=== PATIENT | female | born 1940 | race African-American/Black ===

== ENCOUNTER 2017-06-20 16:37 | Inpatient (IN) | payer OTHER ==
[2017-06-20] MEDS ORDERED: SODIUM CHLORIDE 500 ML IV STA (17:34)
[2017-06-20] MEDS ORDERED: dilTIAZem HCL 50 MG/10 ML - 10 ML VIAL IVPUSH ONE (17:35)
[2017-06-20] MEDS ORDERED: DILTIAZEM INJECTION 125 MG in DEXTROSE 5%-WATER - 100 ML IVPB SCH (17:45)
[2017-06-20] MEDS ORDERED: dilTIAZem HCL 125 MG/25 ML - 25 ML VIAL ONE (17:52)
[2017-06-20 18:27] LABS: BASOPHIL 0.3 % (0-2.0); MCH 29.2 pg (25.7-33.7); MCHC 32.8 g/dl (32.0-36.0); MEAN CELL VOLUME 88.8 fl (80-96); MEAN PLT VOLUME 9.9 fl (7.5-11.1); NEUTROPHILS 70.4 % (42.8-82.8); PLATELET COUNT 172 K/MM3 (134-434); RDW 15.3 % (11.6-15.6); WHITE BLOOD COUNT 6.7 K/mm3 (4.0-10.0)
[2017-06-20 19:34] LABS: INR 3.14 (0.82-1.09); PROTHROMBIN TIME (PATIENT) 35.5 SEC (9.98-11.88)
[2017-06-20 19:50] LABS: ALBUMIN 3.3 g/dl (3.4-5.0); ANION GAP 6 (8-16); BILIRUBIN,TOTAL 0.5 mg/dL (0.2-1.0); CALCIUM 8.3 mg/dL (8.5-10.1); CO2 27 mmol/L (21-32); CREATININE 0.8 mg/dL (0.55-1.02); GLUCOSE,RANDOM 108 mg/dL (74-106); SGOT/AST 14 U/L (15-37); SGPT/ALT 18 U/L (12-78); TOT PROT 7.1 g/dl (6.4-8.2)
[2017-06-20 19:52] LABS: ALK PHOS 101 U/L (45-117); CPK 68 IU/L (26-192); TROPONIN I < 0.02 ng/ml (0.00-0.05)
[2017-06-20 20:58] LABS: URINE APPEARANCE CLEAR; URINE BILIRUBIN NEGATIVE (NEGATIVE); URINE BLOOD 2+ (NEGATIVE); URINE COLOR STRAW; URINE GLUCOSE (UA) NEGATIVE (NEGATIVE); URINE KETONE NEGATIVE (NEGATIVE); URINE NITRITE NEGATIVE (NEGATIVE); URINE PROTEIN NEGATIVE (NEGATIVE); URINE UROBILINOGEN NEGATIVE mg/dL (0.2-1.0)
--- NOTE | 2017-06-20 20:58 | PDOC ---
History of Present Illness <Anders Sanford - Last Filed: 06/20/17 20:59> - General History Source: Patient Exam Limitations: No Limitations - History of Present Illness Initial Comments: 06/20/17 21:21 The patient is a 77 year old female, with a significant past medical history of AFIB, DM, HTN and HLD, who presents to the emergency department with palpitations. She reports that it gets worse when she lay down. She denies partaking in any exertional activities today or recently. She reports that the last time she took Coumadin was yesterday. The patient denies chest pain, shortness of breath, headache and dizziness. Denies fever, chills, nausea, vomit, diarrhea and constipation. Denies dysuria, frequency, urgency and hematuria. Allergies: None Past surgical history: Ablation Social history: No alcohol, tobacco or drug use reported <Chan Velarde - Last Filed: 06/20/17 21:23> - General Chief Complaint: Palpitations Stated Complaint: PALPITATIONS Time Seen by Provider: 06/20/17 17:35 Past History - Past Medical History Anemia: No Asthma: No Cancer: No Cardiac Disorders: Yes (AFIB) CVA: No COPD: No CHF: No Dementia: No Diabetes: No GI Disorders: No Disorders: No HTN: Yes Hypercholesterolemia: Yes Liver Disease: No Seizures: No Thyroid Disease: No - Surgical History Abdominal Surgery: No Appendectomy: No Cardiac Surgery: Yes (ABLATION) Cholecystectomy: No Lung Surgery: No Neurologic Surgery: No Orthopedic Surgery: No - Immunization History Td Vaccination: (unknown) Immunization Up to Date: Yes - Suicide/Smoking/Psychosocial Hx Smoking Status: Yes Smoking History: Never smoked Years of Tobacco Use: 0 Have you smoked in the past 12 months: No Number of Cigarettes Smoked Daily: 0 If you are a former smoker, when did you quit?: Over 25 years ago Cigars Per Day: 0 Information on smoking cessation initiated: No Hx Alcohol Use: No Drug/Substance Use Hx: No Substance Use Type: None Hx Substance Use Treatment: No <Anders Sanford - Last Filed: 06/20/17 20:59> <Chan Velarde - Last Filed: 06/20/17 21:23> - Past Medical History Allergies/Adverse Reactions: Allergies Allergy/AdvReac Type Severity Reaction Status Date / Time No Known Allergies Allergy Verified 06/09/16 19:08 Home Medications: Ambulatory Orders Dofetilide [Tikosyn (RESTRICTED TO CARDIOLOGY) -] 250 mcg PO BID 10/30/12 Diltiazem Cd [Cardizem Cd -] 240 mg PO DAILY 08/12/14 Calcium Carbonate/Vitamin D3 [Oyster Shell 500-Vit D3 200 Tb] 1 each PO BID 04/17 Simvastatin [Zocor -] 40 mg PO HS 06/09/16 Warfarin Sodium [Coumadin] 5 mg PO DAILY 06/09/16 Metoprolol Tartrate [Lopressor -] 50 mg PO DAILY tablet 06/12/16 Valsartan [Diovan] 80 mg PO DAILY tablet 06/12/16 Review of Systems - Review of Systems Able to Perform ROS?: Yes Comments:: 06/20/17 21:23 GENERAL/CONSTITUTIONAL: No fever or chills. No weakness. HEAD, EYES, EARS, NOSE AND THROAT: No change in vision. No ear pain or discharge. No sore throat.- CARDIOVASCULAR: (+) Palpitations. No chest pain or shortness of breath RESPIRATORY: No cough, wheezing, or hemoptysis. GASTROINTESTINAL: No nausea, vomiting, diarrhea or constipation. GENITOURINARY: No dysuria, frequency, or change in urination. MUSCULOSKELETAL: No joint or muscle swelling or pain. No neck or back pain. SKIN: No rash NEUROLOGIC: No headache, vertigo, loss of consciousness, or change in strength/ sensation. ENDOCRINE: No increased thirst. No abnormal weight change HEMATOLOGIC/LYMPHATIC: No anemia, easy bleeding, or history of blood clots. ALLERGIC/IMMUNOLOGIC: No hives or skin allergy. <Chan Velarde - Last Filed: 06/20/17 21:23> *Physical Exam - Vital Signs Last Vital Signs Temp Pulse Resp BP Pulse Ox 98.1 F 116 H 18 131/78 97 06/20/17 18:29 06/20/17 18:29 06/20/17 18:29 06/20/17 18:29 06/20/17 18:29 <Anders Sanford - Last Filed: 06/20/17 20:59> - Vital Signs Last Vital Signs Temp Pulse Resp BP Pulse Ox 98.1 F 116 H 18 131/78 97 06/20/17 18:29 06/20/17 18:29 06/20/17 18:29 06/20/17 18:29 06/20/17 18:29 - Physical Exam Comments: 06/20/17 21:23 GENERAL: Awake, alert, and fully oriented, in no acute distress HEAD: No signs of trauma, normocephalic, atraumatic EYES: PERRLA, EOMI, sclera anicteric, conjunctiva clear ENT: Auricles normal inspection, hearing grossly normal, nares patent, oropharynx clear without exudates. Moist mucosa NECK: Normal ROM, supple, no lymphadenopathy, JVD, or masses LUNGS: No distress, speaks full sentences, clear to auscultation bilaterally HEART: Regular rate and rhythm, normal S1 and S2, no murmurs, rubs or gallops, peripheral pulses normal and equal bilaterally. ABDOMEN: Soft, nontender, normoactive bowel sounds. No guarding, no rebound. No masses EXTREMITIES : Normal inspection, Normal range of motion, no edema. No clubbing or cyanosis. NEUROLOGICAL: Cranial nerves II through XII grossly intact. Normal speech, normal gait, no focal sensorimotor deficits SKIN: Warm, Dry, normal turgor, no rashes or lesions noted. <Chan Velarde - Last Filed: 06/20/17 21:23> Heart Score/ECG Review - History History: Moderately suspicious - Electrocardiogram EKG: Non specific repolarization disturbance - Age Age: >/= 65 - Risk Factors Risk Factors Heart Score: Yes Hx Hypercholesterolemia, Yes Hx Hypertension, Yes Hx Diabetes, Yes Positive family hx of cardiac disease Based on the list above the patient has:: >/=3 risk factors or Hx atherosclerotic disease - Troponin Troponin: </= normal limit - Score Heart Score - Total: 6 <Anders Sanford - Last Filed: 06/20/17 20:59> ED Treatment Course - LABORATORY CBC & Chemistry Diagram: 06/20/17 17:43 06/20/17 19:00 - ADDITIONAL ORDERS Additional order review: Laboratory Results 06/20/17 06/20/17 06/20/17 19:00 19:00 19:00 PT with INR 35.50 H INR 3.14 H D Sodium 140 Potassium 3.5 Chloride 107 Carbon Dioxide 27 Anion Gap 6 L BUN 14 Creatinine 0.8 Creat Clearance w eGFR > 60 Random Glucose 108 H Calcium 8.3 L Magnesium Total Bilirubin 0.5 AST 14 L ALT 18 Alkaline Phosphatase 101 D Creatine Kinase 68 Troponin I < 0.02 B-Natriuretic Peptide 552.62 H Total Protein 7.1 Albumin 3.3 L Anti-A Titer Blood Type Antibody Screen Spec Expiration Date 06/20/17 06/20/17 06/20/17 17:43 17:43 17:43 PT with INR Cancelled INR Cancelled Sodium Cancelled Potassium Cancelled Chloride Cancelled Carbon Dioxide Cancelled Anion Gap Cancelled BUN Cancelled Creatinine Cancelled Creat Clearance w eGFR Cancelled Random Glucose Cancelled Calcium Cancelled Magnesium Cancelled Total Bilirubin Cancelled AST Cancelled ALT Cancelled Alkaline Phosphatase Cancelled Creatine Kinase Cancelled Troponin I Cancelled B-Natriuretic Peptide Cancelled Total Protein Cancelled Albumin Cancelled Anti-A Titer Cancelled Blood Type Cancelled Antibody Screen Cancelled Spec Expiration Date Cancelled 06/20/17 17:43 RBC 4.45 MCV 88.8 MCHC 32.8 RDW 15.3 MPV 9.9 Neutrophils % 70.4 D Lymphocytes % 21.4 D Monocytes % 7.9 Eosinophils % 0.0 Basophils % 0.3 - RADIOLOGY Radiology Studies Ordered: Category Date Time Status CHEST X-RAY PORTABLE* [RAD] Stat Radiology 06/20/17 17:34 Completed - Medications Given in the ED: ED Medications Discontinued Medications Generic Name Dose Route Start Last Admin Trade Name Freq PRN Reason Stop Dose Admin Diltiazem HCl 10 mg 06/20/17 17:35 06/20/17 17:53 Cardizem Injection - IVPUSH 06/20/17 17:36 10 mg ONCE ONE Administration Sodium Chloride 500 mls @ 500 mls/hr 06/20/17 17:34 06/20/17 17:48 Normal Saline - IV 06/20/17 18:33 500 mls/hr ASDIR STA Administration <Anders Sanford - Last Filed: 06/20/17 20:59> - LABORATORY CBC & Chemistry Diagram: 06/20/17 17:43 06/20/17 19:00 - ADDITIONAL ORDERS Additional order review: Laboratory Results 06/20/17 06/20/17 06/20/17 19:00 19:00 19:00 PT with INR 35.50 H INR 3.14 H D Sodium 140 Potassium 3.5 Chloride 107 Carbon Dioxide 27 Anion Gap 6 L BUN 14 Creatinine 0.8 Creat Clearance w eGFR > 60 Random Glucose 108 H Calcium 8.3 L Magnesium Total Bilirubin 0.5 AST 14 L ALT 18 Alkaline Phosphatase 101 D Creatine Kinase 68 Troponin I < 0.02 B-Natriuretic Peptide 552.62 H Total Protein 7.1 Albumin 3.3 L Urine Color Urine Appearance Urine pH Urine Protein Urine Glucose (UA) Urine Ketones Urine Blood Urine Nitrite Urine Bilirubin Urine Urobilinogen Urine RBC Urine WBC Ur Epithelial Cells Anti-A Titer Blood Type Antibody Screen Spec Expiration Date 06/20/17 06/20/17 06/20/17 17:43 17:43 17:43 PT with INR INR Sodium Cancelled Potassium Cancelled Chloride Cancelled Carbon Dioxide Cancelled Anion Gap Cancelled BUN Cancelled Creatinine Cancelled Creat Clearance w eGFR Cancelled Random Glucose Cancelled Calcium Cancelled Magnesium Cancelled Total Bilirubin Cancelled AST Cancelled ALT Cancelled Alkaline Phosphatase Cancelled Creatine Kinase Cancelled Troponin I Cancelled B-Natriuretic Peptide Cancelled Total Protein Cancelled Albumin Cancelled Urine Color Straw Urine Appearance Clear Urine pH 6.0 Urine Protein Negative Urine Glucose (UA) Negative Urine Ketones Negative Urine Blood 2+ H Urine Nitrite Negative Urine Bilirubin Negative Urine Urobilinogen Negative Urine RBC 8 Urine WBC 1 Ur Epithelial Cells Rare Anti-A Titer Cancelled Blood Type Cancelled Antibody Screen Cancelled Spec Expiration Date Cancelled 06/20/17 17:43 PT with INR Cancelled INR Cancelled Sodium Potassium Chloride Carbon Dioxide Anion Gap BUN Creatinine Creat Clearance w eGFR Random Glucose Calcium Magnesium Total Bilirubin AST ALT Alkaline Phosphatase Creatine Kinase Troponin I B-Natriuretic Peptide Total Protein Albumin Urine Color Urine Appearance Urine pH Urine Protein Urine Glucose (UA) Urine Ketones Urine Blood Urine Nitrite Urine Bilirubin Urine Urobilinogen Urine RBC Urine WBC Ur Epithelial Cells Anti-A Titer Blood Type Antibody Screen Spec Expiration Date 06/20/17 17:43 RBC 4.45 MCV 88.8 MCHC 32.8 RDW 15.3 MPV 9.9 Neutrophils % 70.4 D Lymphocytes % 21.4 D Monocytes % 7.9 Eosinophils % 0.0 Basophils % 0.3 - Medications Given in the ED: ED Medications Discontinued Medications Generic Name Dose Route Start Last Admin Trade Name Freq PRN Reason Stop Dose Admin Diltiazem HCl 10 mg 06/20/17 17:35 06/20/17 17:53 Cardizem Injection - IVPUSH 06/20/17 17:36 10 mg ONCE ONE Administration Sodium Chloride 500 mls @ 500 mls/hr 06/20/17 17:34 06/20/17 17:48 Normal Saline - IV 06/20/17 18:33 500 mls/hr ASDIR STA Administration <Chan Velarde - Last Filed: 06/20/17 21:23> *DC/Admit/Observation/Transfer - Discharge Dispostion Admit: Yes <Anders Sanford - Last Filed: 06/20/17 20:59> - Attestations Scribe Attestion: 06/20/17 21:23 Documentation prepared by Chan Velarde, acting as medical supply technician for Anders Sanford MD <Chan Velarde - Last Filed: 06/20/17 21:23> Diagnosis at time of Disposition: Atrial fibrillation with RVR Atrial fibrillation Qualifiers: Atrial fibrillation type: paroxysmal Qualified Code(s): I48.0 - Paroxysmal atrial fibrillation - Discharge Dispostion Condition at time of disposition: Improved - Referrals Referrals: Nicolas Orosco MD [Primary Care Provider] -
[2017-06-20 21:08] LABS: URINE RBC 8 /hpf (0-3); URINE WBC 1 /hpf (3-5)
[2017-06-20 23:03] LABS: URINE LEUK ESTERASE Negative (NEGATIVE)
[2017-06-20 23:52] VITALS: BMI 31.9
[2017-06-21] MEDS ORDERED: ACETAMINOPHEN 325 MG TABLET (FP) PO PRN (00:30)
[2017-06-21 01:39] LABS: URINE APPEARANCE CLEAR; URINE BILIRUBIN NEGATIVE (NEGATIVE); URINE BLOOD 2+ (NEGATIVE); URINE COLOR STRAW; URINE GLUCOSE (UA) NEGATIVE (NEGATIVE); URINE KETONE NEGATIVE (NEGATIVE); URINE NITRITE NEGATIVE (NEGATIVE); URINE PROTEIN NEGATIVE (NEGATIVE); URINE UROBILINOGEN NEGATIVE mg/dL (0.2-1.0)
[2017-06-21 02:13] LABS: URINE BACTERIA RARE /hpf (NONE SEEN); URINE MUCUS RARE; URINE RBC 5 /hpf (0-3)
[2017-06-21 07:15] LABS: BASOPHIL 1.7 % (0-2.0); MCHC 33.1 g/dl (32.0-36.0); MEAN CELL VOLUME 87.6 fl (80-96); MEAN PLT VOLUME 9.5 fl (7.5-11.1); NEUTROPHILS 57.9 % (42.8-82.8); PLATELET COUNT 165 K/MM3 (134-434); RDW 15.1 % (11.6-15.6); WHITE BLOOD COUNT 5.8 K/mm3 (4.0-10.0)
[2017-06-21 07:42] LABS: ANION GAP 8 (8-16); CALCIUM 8.2 mg/dL (8.5-10.1); CO2 26 mmol/L (21-32); GLUCOSE,RANDOM 114 mg/dL (74-106); MAGNESIUM 2.1 mg/dL (1.8-2.4)
[2017-06-21 07:52] LABS: ALK PHOS 91 U/L (45-117); BILIRUBIN,TOTAL 0.5 mg/dL (0.2-1.0); CPK 67 IU/L (26-192); CREATININE 0.8 mg/dL (0.55-1.02); FREE T4 1.33 ng/dl (0.76-1.46); SGOT/AST 13 U/L (15-37); SGPT/ALT 16 U/L (12-78); THYROID STIMULATING HORMONE 1.27 uIU/ml (0.358-3.74); TOT PROT 6.5 g/dl (6.4-8.2); TROPONIN I 0.02 ng/ml (0.00-0.05)
--- NOTE | 2017-06-21 08:51 | CON.CARD ---
Consult Consult Specialty:: cardiology Reason for Consultation:: AF; prolonged pause - History of Present Illness History of Present Illness: The patient is a 77 year old black female, with a significant past medical history of AFIB, DM, HTN and HLD, who presents to the emergency department with palpitations. She reports that it gets worse when she lays down. She denies partaking in any exertional activities today or recently. She reports that the last time she took Coumadin was yesterday. The patient denies chest pain, shortness of breath, headache and dizziness. Denies fever, chills, nausea, vomit, diarrhea and constipation. Denies dysuria, frequency, urgency and hematuria. Allergies: None Past surgical history: Ablation Social history: No alcohol, tobacco or drug use reported - History Source History Provided By: Patient, Medical Record Limitations to Obtaining History: No Limitations - Past Medical History Cardio/Vascular: Yes: AFIB (s/p ablation therapy), HTN, Hyperlipdemia Pulmonary: Yes: Sleep Apnea Reproductive: Yes: Postmenopausal ...: No Heme/Onc: No: Anemia - Past Surgical History Additional Surgical History: ablation for AF - Alcohol/Substance Use Hx Alcohol Use: No - Smoking History Smoking history: Never smoked Have you smoked in the past 12 months: No Aproximately how many cigarettes per day: 0 If you are a former smoker, when did you quit?: Over 25 years ago - Social History Usual Living Arrangement: With Child ADL: Independent History of Recent Travel: No Home Medications - Allergies Allergies/Adverse Reactions: Allergies Allergy/AdvReac Type Severity Reaction Status Date / Time No Known Allergies Allergy Verified 06/09/16 19:08 - Home Medications Home Medications: Ambulatory Orders Dofetilide [Tikosyn (RESTRICTED TO CARDIOLOGY) -] 250 mcg PO BID 10/30/12 Diltiazem Cd [Cardizem Cd -] 240 mg PO DAILY 08/12/14 Calcium Carbonate/Vitamin D3 [Oyster Shell 500-Vit D3 200 Tb] 1 each PO BID 04/17 Simvastatin [Zocor -] 40 mg PO HS 06/09/16 Warfarin Sodium [Coumadin] 5 mg PO DAILY 06/09/16 Metoprolol Tartrate [Lopressor -] 50 mg PO DAILY tablet 06/12/16 Valsartan [Diovan] 80 mg PO DAILY tablet 10/11/16 Family Disease History - Family Disease History Family History: Denies Review of Systems - Review of Systems Constitutional: reports: No Symptoms Eyes: reports: No Symptoms HENT: reports: No Symptoms Neck: reports: No Symptoms Cardiovascular: reports: Palpitations Respiratory: reports: No Symptoms Gastrointestinal: reports: No Symptoms Genitourinary: reports: No Symptoms Musculoskeletal: reports: No Symptoms Integumentary: reports: No Symptoms Neurological: reports: No Symptoms Endocrine: reports: No Symptoms Hematology/Lymphatic: reports: No Symptoms Psychiatric: reports: Altered Sleep Pattern, Anxiety - Risk Factors Known Risk Factors: Yes: Age, Diabetes Mellitus, Hypercholesterolemia, Hypertension, Physical Inactivity, Race, Other (PAF) Vital Signs: Vital Signs Temperature 98.3 F 06/21/17 05:45 Pulse Rate 59 L 06/21/17 06:22 Respiratory Rate 18 06/21/17 05:45 Blood Pressure 135/71 06/21/17 06:22 O2 Sat by Pulse Oximetry (%) 96 06/20/17 23:39 Constitutional: Yes: Calm Eyes: Yes: WNL HENT: Yes: WNL Neck: Yes: WNL Respiratory: Yes: WNL Gastrointestinal: Yes: WNL Renal/: No: Anuria Cardiovascular: Yes: Regular Rate and Rhythm JVD: No Carotid Bruit: No PMI: Non-Displaced Heart Sounds: Yes: S1, S2 Murmur: Yes: Systolic Murmur, Grade 1 Musculoskeletal: Yes: WNL Extremities: Yes: WNL Edema: No Peripheral Pulses WNL: Yes Integumentary: Yes: WNL Neurological: Yes: WNL ...Motor Strength: WNL Psychiatric: Yes: WNL - Other Data Labs, Other Data: CBC, BMP 06/21/17 06:45 06/21/17 06:45 INR, PTT INR 3.14 (0.82-1.09) H D 06/20/17 19:00 Troponin, BNP 06/21/17 06:45 Troponin I 0.02 Troponin, BNP 06/21/17 06:45 Troponin I 0.02 Abnormal Lab Results 06/20/17 06/20/17 06/20/17 17:43 19:00 19:00 PT with INR 35.50 H INR 3.14 H D Random Glucose Calcium AST B-Natriuretic Peptide 552.62 H Albumin Urine Blood 2+ H 06/21/17 06/21/17 01:05 06:45 PT with INR INR Random Glucose 114 H Calcium 8.2 L AST 13 L B-Natriuretic Peptide Albumin 3.0 L Urine Blood 2+ H Echo: Report Reviewed (normal LVEF; mild TR and MR (06/17)) Prior Cardiac Procedures: Ablation Ejection Fraction %: LVEF > or = 40 % Imaging - Results Chest X-ray: Image Reviewed (no acute pathology) EKG: Image Reviewed (normal sinus rhythm; LVH) Problem List - Problems (1) Paroxysmal atrial fibrillation Assessment/Plan: Pt took her usual medications PO yesterday prior to arrival. Several hours after being o IV diltiazem for rapid AF, she had a 5+ second pause (felt dizzy during the pause), then converted to normal sinus rhythm. Diltiazem IV was stopped. Will restart her oral medications and observie. Discussed pt's case with her director medical surgical, Dr. Odell. Pt has had intermittent breakthorughs to pAF despite being on AV conduction blockers and TIkosyn (she has been largely symptom-free for the past year). She has been offered repeat ablation therapy or amiodarone by him before, but she has refused them. If pt has no further symptoms or arrhythmias, will plan on discharge tomorrow. Warfarin held dur to INR>3. TSH WNL. Code(s): I48.0 - PAROXYSMAL ATRIAL FIBRILLATION (2) Hyperlipidemia Assessment/Plan: on statin. Weight loss, diet modification, and exercise are important, and were discussed. She admits she has been doing little in the way of any exercise. Code(s): E78.5 - HYPERLIPIDEMIA, UNSPECIFIED Qualifiers: Hyperlipidemia type: mixed hyperlipidemia Qualified Code(s): E78.2 - Mixed hyperlipidemia; E78.2 - Mixed hyperlipidemia; E78.2 - Mixed hyperlipidemia (3) Hypertension Code(s): I10 - ESSENTIAL (PRIMARY) HYPERTENSION Qualifiers: Hypertension type: essential hypertension Qualified Code(s): I10 - Essential (primary) hypertension; I10 - Essential (primary) hypertension; I10 - Essential (primary) hypertension (4) Palpitation Assessment/Plan: pt has been relatively symptom-free for the past year. Code(s): R00.2 - PALPITATIONS (5) Risk factors for obstructive sleep apnea Code(s): Z91.89 - OT PERSONAL RISK FACTORS, NOT ELSEWHERE CLASSIFIED (6) Diabetes Code(s): E11.9 - TYPE 2 DIABETES MELLITUS WITHOUT COMPLICATIONS
[2017-06-21 08:56] LABS: URINE LEUK ESTERASE Negative (NEGATIVE)
[2017-06-21 09:33] LABS: URINE WBC 1 /hpf (3-5)
--- NOTE | 2017-06-21 09:41 | EKG ---
Test Reason : Blood Pressure : / mmHG Vent. Rate : 068 BPM Atrial Rate : 068 BPM P-R Int : 152 ms QRS Dur : 094 ms QT Int : 444 ms P-R-T Axes : 037 033 239 degrees QTc Int : 472 ms NORMAL SINUS RHYTHM LEFT VENTRICULAR HYPERTROPHY WITH REPOLARIZATION ABNORMALITY ABNORMAL ECG WHEN COMPARED WITH ECG OF 20-JUN-2017 17:09, SINUS RHYTHM HAS REPLACED ATRIAL FIBRILLATION VENT. RATE HAS DECREASED BY 53 BPM Confirmed by LOLY SAWYER MD ([id number]) on 06/21/2017 9:41:16 AM Referred By: CHANTAL MARX DR Confirmed By:LOLY SAWYER MD
--- NOTE | 2017-06-21 09:47 | EKG ---
Test Reason : Blood Pressure : / mmHG Vent. Rate : 121 BPM Atrial Rate : 133 BPM P-R Int : 000 ms QRS Dur : 094 ms QT Int : 280 ms P-R-T Axes : 000 050 221 degrees QTc Int : 397 ms ATRIAL FIBRILLATION WITH RAPID VENTRICULAR RESPONSE VOLTAGE CRITERIA FOR LEFT VENTRICULAR HYPERTROPHY ABNORMAL ECG Confirmed by LOLY SAWYER MD ([id number]) on 06/21/2017 9:47:27 AM Referred By: Confirmed By:LOLY SAWYER MD
[2017-06-21] MEDS: METOPROLOL SUCCINATE 50 MG TAB.SR.24H (FP) PO SCH (09:52)
[2017-06-21] MEDS: VALSARTAN 80 MG TABLET (UD) PO SCH (09:52)
[2017-06-21] MEDS: DOFETILIDE 0.25 MG CAPSULE PO SCH ×2 (09:52→21:11)
[2017-06-21] MEDS ORDERED: METOPROLOL TARTRATE 50 MG TABLET (FP) PO SCH (10:00)
[2017-06-21] MEDS ORDERED: guaiFENesin 200 MG/10 ML 10 ML UNIT-DOSE CUPS PO PRN (12:48)
--- NOTE | 2017-06-21 12:48 | HP ---
Admitting History and Physical - Primary Care Physician PCP: Cindy Min - Admission Chief Complaint: PALPITATIONS History of Present Illness: The patient is a 77 year old black female, with a significant past medical history of AFIB, DM, HTN and HLD, who presents to the emergency department with palpitations. She reports that it gets worse when she lay down. She denies partaking in any exertional activities today or recently. She reports that the last time she took Coumadin was yesterday. The patient denies chest pain, shortness of breath, headache and dizziness. Denies fever, chills, nausea, vomit, diarrhea and constipation. Denies dysuria, frequency, urgency and hematuria. History Source: Patient, Medical Record - Past Medical History Cardiovascular: Yes: AFIB (s/p ablation therapy), HTN, Hyperlipdemia ...: No - Past Surgical History Past Surgical History: Yes: None - Smoking History Smoking history: Never smoked Have you smoked in the past 12 months: No Aproximately how many cigarettes per day: 0 If you are a former smoker, when did you quit?: Over 25 years ago - Alcohol/Substance Use Hx Alcohol Use: No - Social History ADL: Independent History of Recent Travel: No Home Medications - Allergies Allergies/Adverse Reactions: Allergies Allergy/AdvReac Type Severity Reaction Status Date / Time No Known Allergies Allergy Verified 06/09/16 19:08 - Home Medications Home Medications: Ambulatory Orders Dofetilide [Tikosyn (RESTRICTED TO CARDIOLOGY) -] 250 mcg PO BID 10/30/12 Diltiazem Cd [Cardizem Cd -] 240 mg PO DAILY 08/12/14 Calcium Carbonate/Vitamin D3 [Oyster Shell 500-Vit D3 200 Tb] 1 each PO BID 04/17 Simvastatin [Zocor -] 40 mg PO HS 06/09/16 Warfarin Sodium [Coumadin] 5 mg PO DAILY 06/09/16 Metoprolol Tartrate [Lopressor -] 50 mg PO DAILY tablet 06/12/16 Valsartan [Diovan] 80 mg PO DAILY tablet 06/12/16 Review of Systems - Review of Systems Constitutional: reports: No Symptoms Eyes: reports: No Symptoms HENT: reports: No Symptoms Neck: reports: No Symptoms Cardiovascular: reports: Palpitations Respiratory: reports: Cough Gastrointestinal: reports: No Symptoms Genitourinary: reports: No Symptoms Musculoskeletal: reports: No Symptoms Integumentary: reports: No Symptoms Neurological: reports: No Symptoms Endocrine: reports: No Symptoms Hematology/Lymphatic: reports: No Symptoms Psychiatric: reports: No Symptoms Physical Examination Vital Signs: Vital Signs Temperature 99.0 F 06/21/17 09:00 Pulse Rate 73 06/21/17 09:00 Respiratory Rate 18 06/21/17 09:00 Blood Pressure 143/64 06/21/17 09:00 O2 Sat by Pulse Oximetry (%) 98 06/21/17 09:00 Constitutional: Yes: No Distress Eyes: Yes: WNL HENT: Yes: WNL Neck: Yes: WNL Cardiovascular: Yes: WNL Respiratory: Yes: WNL Gastrointestinal: Yes: WNL Renal/: Yes: WNL Musculoskeletal: Yes: WNL Extremities: Yes: WNL Edema: No Peripheral Pulses WNL: Yes Integumentary: Yes: WNL Wound/Incision: Yes: Clean/Dry Neurological: Yes: WNL ...Motor Strength: WNL Psychiatric: Yes: WNL Labs: CBC, BMP 06/21/17 06:45 06/21/17 06:45 Problem List - Problems (1) Atrial fibrillation with RVR Code(s): I48.91 - UNSPECIFIED ATRIAL FIBRILLATION (2) Hyperlipidemia Code(s): E78.5 - HYPERLIPIDEMIA, UNSPECIFIED Qualifiers: Hyperlipidemia type: mixed hyperlipidemia Qualified Code(s): E78.2 - Mixed hyperlipidemia; E78.2 - Mixed hyperlipidemia; E78.2 - Mixed hyperlipidemia (3) Palpitation Code(s): R00.2 - PALPITATIONS Assessment/Plan CARDIOLOGY EVAL CHECK TSH AC CXR COUGH ADD ROBITUSSIN AND NEBS
[2017-06-21] MEDS: ARFORMOTEROL TARTRATE 15 MCG/2 ML VIAL NEB SCH ×2 (16:00→22:19)
[2017-06-21] MEDS ORDERED: WARFARIN NA 5 MG TABLET (UD) PO SCH (18:00)
[2017-06-21] MEDS ORDERED: ATORVASTATIN CA 20 MG TABLET (FP) PO SCH (22:00)
[2017-06-22 07:54] LABS: INR 1.89 (0.82-1.09); PROTHROMBIN TIME (PATIENT) 21.4 SEC (9.98-11.88)
--- NOTE | 2017-06-22 10:15 | PN ---
Progress Note, Physician Chief Complaint: Pt is presently asymptomatic. History of Present Illness: The patient is a 77 year old black female, with a significant past medical history of AFIB, DM, HTN and HLD, who presents to the emergency department with palpitations. She reports that it gets worse when she lays down. She denies partaking in any exertional activities today or recently. She reports that the last time she took Coumadin was yesterday. The patient denies chest pain, shortness of breath, headache and dizziness. Denies fever, chills, nausea, vomit, diarrhea and constipation. Denies dysuria, frequency, urgency and hematuria. Allergies: None Past surgical history: Ablation Social history: No alcohol, tobacco or drug use reported - Current Medication List Current Medications: Active Medications Acetaminophen (Tylenol -) 650 mg PO Q4H PRN PRN Reason: FEVER OR PAIN Last Admin: 06/21/17 00:50 Dose: 650 mg Arformoterol Tartrate (Brovana (Restricted To Pulmonology/Resp) -) 1 amp NEB BID [facility] Last Admin: 06/21/17 22:19 Dose: 1 amp Atorvastatin Calcium (Lipitor -) 20 mg PO HS [facility] Last Admin: 06/21/17 21:10 Dose: 20 mg Diltiazem HCl (Cardizem Cd -) 240 mg PO DAILY [facility] Last Admin: 06/21/17 09:52 Dose: 240 mg Dofetilide (Tikosyn (Restricted To Cardiology) -) 0.25 mg PO BID [facility] Last Admin: 06/21/17 21:11 Dose: 0.25 mg Guaifenesin (Robitussin -) 10 ml PO Q6H PRN PRN Reason: COUGH Metoprolol Succinate (Toprol Xl -) 50 mg PO DAILY [facility] Last Admin: 06/21/17 09:52 Dose: 50 mg Valsartan (Diovan -) 80 mg PO DAILY [facility] Last Admin: 06/21/17 09:52 Dose: 80 mg - Objective Vital Signs: Vital Signs Temperature 98.3 F 06/22/17 06:00 Pulse Rate 61 06/22/17 06:00 Respiratory Rate 18 06/22/17 06:00 Blood Pressure 132/59 06/22/17 06:00 O2 Sat by Pulse Oximetry (%) 97 06/21/17 21:00 Constitutional: Yes: Calm Eyes: Yes: WNL HENT: Yes: WNL Neck: Yes: WNL Cardiovascular: Yes: WNL, S1, S2 Respiratory: Yes: WNL Gastrointestinal: Yes: WNL ...Rectal Exam: Yes: Deferred Genitourinary: No: Anuria Breast(s): Yes: WNL Musculoskeletal: Yes: WNL Extremities: Yes: WNL Edema: No Peripheral Pulses WNL: Yes Integumentary: Yes: WNL Neurological: Yes: WNL Psychiatric: Yes: WNL Labs: CBC, BMP 06/21/17 06:45 06/21/17 06:45 INR, PTT INR 1.89 (0.82-1.09) H D 06/22/17 05:35 Abnormal Lab Results 06/22/17 05:35 PT with INR 21.40 H INR 1.89 H D - ....Imaging Other: Image Reviewed (telemetry: NSR; rare APCs.) Problem List - Problems (1) Paroxysmal atrial fibrillation Assessment/Plan: Pt has been in sinus rhythm since "conversion" from AF yesterday.NO further significant pauses since IV diltiazem was stopped. Pt took her usual medications PO yesterday prior to arrival. Several hours after being o IV diltiazem for rapid AF, she had a 5+ second pause (felt dizzy during the pause), then converted to normal sinus rhythm. Diltiazem IV was stopped. Will restart her oral medications and observie. Discussed pt's case with her case hardener, Dr. Odell. Pt has had intermittent breakthorughs to pAF despite being on AV conduction blockers and TIkosyn (she has been largely symptom-free for the past year). She has been offered repeat ablation therapy or amiodarone by him before, but she has refused them. TSH WNL. Code(s): I48.0 - PAROXYSMAL ATRIAL FIBRILLATION (2) Hyperlipidemia Assessment/Plan: on statin. Weight loss, diet modification, and exercise are important, and were discussed. She admits she has been doing little in the way of any exercise. Code(s): E78.5 - HYPERLIPIDEMIA, UNSPECIFIED Qualifiers: Hyperlipidemia type: mixed hyperlipidemia Qualified Code(s): E78.2 - Mixed hyperlipidemia; E78.2 - Mixed hyperlipidemia; E78.2 - Mixed hyperlipidemia (3) Hypertension Code(s): I10 - ESSENTIAL (PRIMARY) HYPERTENSION Qualifiers: Hypertension type: essential hypertension Qualified Code(s): I10 - Essential (primary) hypertension; I10 - Essential (primary) hypertension; I10 - Essential (primary) hypertension (4) Palpitation Assessment/Plan: pt has been relatively symptom-free for the past year. Code(s): R00.2 - PALPITATIONS (5) Risk factors for obstructive sleep apnea Code(s): Z91.89 - OTH PERSONAL RISK FACTORS, NOT ELSEWHERE CLASSIFIED (6) Diabetes Code(s): E11.9 - TYPE 2 DIABETES MELLITUS WITHOUT COMPLICATIONS
[2017-06-22] MEDS: ARFORMOTEROL TARTRATE 15 MCG/2 ML VIAL NEB SCH (10:46)
[2017-06-22] MEDS ORDERED: PT OWN MED DRAWER 7, Y5N ONE (10:47)
[2017-06-22] MEDS: VALSARTAN 80 MG TABLET (UD) PO SCH (10:49)
[2017-06-22] MEDS: METOPROLOL SUCCINATE 50 MG TAB.SR.24H (FP) PO SCH (10:49)
[2017-06-22] MEDS: DOFETILIDE 0.25 MG CAPSULE PO SCH (10:50)
--- NOTE | 2017-06-22 12:54 | EKG ---
Test Reason : Blood Pressure : / mmHG Vent. Rate : 063 BPM Atrial Rate : 063 BPM P-R Int : 148 ms QRS Dur : 092 ms QT Int : 462 ms P-R-T Axes : 045 047 -76 degrees QTc Int : 472 ms NORMAL SINUS RHYTHM LEFT VENTRICULAR HYPERTROPHY WITH REPOLARIZATION ABNORMALITY ABNORMAL ECG WHEN COMPARED WITH ECG OF 21-JUN-2017 08:41, NO SIGNIFICANT CHANGE WAS FOUND CLINICAL CORRELATION IS RECOMMENDED Confirmed by VICENTE YOUNG, PAULO ([id number]) on 06/22/2017 12:54:33 PM Referred By: Nando GRAHAM Confirmed By:PAULO ZHANG MD
[2017-06-22 15:38] VITALS: BP 121/54; PULSE 62; TEMP 98.8
--- NOTE | 2017-06-22 15:40 | PN ---
Progress Note, Physician Chief Complaint: Heart Palpitations History of Present Illness: NAD - Current Medication List Current Medications: Active Medications Acetaminophen (Tylenol -) 650 mg PO Q4H PRN PRN Reason: FEVER OR PAIN Last Admin: 06/21/17 00:50 Dose: 650 mg Arformoterol Tartrate (Brovana (Restricted To Pulmonology/Resp) -) 1 amp NEB BID [facility] Last Admin: 06/22/17 10:46 Dose: 1 amp Atorvastatin Calcium (Lipitor -) 20 mg PO HS [facility] Last Admin: 06/21/17 21:10 Dose: 20 mg Diltiazem HCl (Cardizem Cd -) 240 mg PO DAILY [facility] Last Admin: 06/22/17 10:49 Dose: 240 mg Dofetilide (Tikosyn (Restricted To Cardiology) -) 0.25 mg PO BID [facility] Last Admin: 06/22/17 10:50 Dose: 0.25 mg Guaifenesin (Robitussin -) 10 ml PO Q6H PRN PRN Reason: COUGH Metoprolol Succinate (Toprol Xl -) 50 mg PO DAILY [facility] Last Admin: 06/22/17 10:49 Dose: 50 mg Valsartan (Diovan -) 80 mg PO DAILY [facility] Last Admin: 06/22/17 10:49 Dose: 80 mg - Objective Vital Signs: Vital Signs Temperature 98.8 F 06/22/17 15:00 Pulse Rate 62 06/22/17 15:00 Respiratory Rate 16 06/22/17 15:00 Blood Pressure 121/54 06/22/17 15:00 O2 Sat by Pulse Oximetry (%) 97 06/22/17 09:00 Labs: CBC, BMP 06/21/17 06:45 06/21/17 06:45 INR, PTT INR 1.89 (0.82-1.09) H D 06/22/17 05:35
--- NOTE | 2017-06-22 15:40 | DS ---
Physical Examination Vital Signs: Vital Signs Temperature 98.8 F 06/22/17 15:00 Pulse Rate 62 06/22/17 15:00 Respiratory Rate 16 06/22/17 15:00 Blood Pressure 121/54 06/22/17 15:00 O2 Sat by Pulse Oximetry (%) 97 06/22/17 09:00 Findings/Remarks: NAD Constitutional: Yes: Well Nourished, No Distress, Calm Labs: CBC, BMP 06/21/17 06:45 06/21/17 06:45 Discharge Summary Reason For Visit: ATRIAL FIBRILLATION WITH RAPID VENTRICULAR RESPONS Current Active Problems Atrial fibrillation (Acute) Atrial fibrillation with RVR (Acute) Diabetes (Acute) Paroxysmal atrial fibrillation (Acute) Condition: Improved - Instructions Diet, Activity, Other Instructions: Low sodium diet -F/U with PCP and Cardiology within 1 week -F/U with Dr Pierre within 1 week -restart coumadin at 2.5 mg Sundays and 5 mg all other days Referrals: Nicolas Orosco MD [Primary Care Provider] - Disposition: HOME - Home Medications Comprehensive Discharge Medication List: Ambulatory Orders Dofetilide [Tikosyn (RESTRICTED TO CARDIOLOGY) -] 250 mcg PO BID 10/30/12 Diltiazem Cd [Cardizem Cd -] 240 mg PO DAILY 08/12/14 Calcium Carbonate/Vitamin D3 [Oyster Shell 500-Vit D3 200 Tb] 1 each PO BID 04/17 Simvastatin [Zocor -] 40 mg PO HS 06/09/16 Metoprolol Tartrate [Lopressor -] 50 mg PO DAILY tablet 06/12/16 Valsartan [Diovan] 80 mg PO DAILY tablet 06/12/16 Warfarin Na [Coumadin -] 5 mg PO DAILY@18 tablet 06/22/17
== END 2017-06-22 16:07 | disposition home or self-care (01) | DRG 310 ==
LOC: JER 16:37 → JERBED 20:58 → J4W 23:34
PROVIDERS: ADMIT Family Medicine; ATTEND Family Medicine
DX: I48.0 Paroxysmal atrial fibrillation (principal); E78.5 Hyperlipidemia, unspecified; E11.9 Type 2 diabetes mellitus without complications; I10 Essential (primary) hypertension; R00.2 Palpitations
CPT/HCPCS: 36415; 71010-TC; 80053; 81003; 81015; 82550; 83735; 83880; 84439; 84443; 84484; 85025; 85610; 86850; 86900; 86901; 87040; 87086; 93005; 93010; 94640; 99284-25

== ENCOUNTER 2017-11-23 15:02 | Emergency (ER) | payer OTHER ==
[2017-11-23 15:27] VITALS: BMI 30.7
--- NOTE | 2017-11-23 15:32 | PDOC ---
History of Present Illness - General History Source: Patient Exam Limitations: No Limitations - History of Present Illness Initial Comments: 11/23/17 17:45 The patient is a 77 year old female, with a significant past medical history of AFIB (on Coumadin), DM, HTN and HLD who presents to the emergency department with worsening cough (nonproductive), nausea/diarrhea for the past week. Patient was diagnosed with PNA and flu and since then has been taking Tamiflu and abx. Patient finished her course of flu medications but not her abx. Patient reports persistent body aches and decreased appetite. Patient denies chest pain, headache or dizziness. Patient denies abdominal pain, nausea, vomit, diarrhea or constipation. Patient denies dysuria, frequency, urgency or hematuria. Patient denies sick contacts or recent travel. Allergies: NKA Past surgical history: None Social history: None PCP: Dr. Nicolas Orosco <Orly Peterson - Last Filed: 11/23/17 17:45> <Sherin Agarwal - Last Filed: 11/23/17 18:52> - General Chief Complaint: Weakness Stated Complaint: cold symptoms Time Seen by Provider: 11/23/17 15:32 Past History <Orly Peterson - Last Filed: 11/23/17 17:45> - Past Medical History Anemia: No Asthma: No Cancer: No Cardiac Disorders: Yes (AFIB) CVA: No COPD: No CHF: No Dementia: No Diabetes: Yes GI Disorders: No Disorders: No HTN: Yes Hypercholesterolemia: Yes Liver Disease: No Seizures: No Thyroid Disease: No - Surgical History Abdominal Surgery: No Appendectomy: No Cardiac Surgery: Yes (ABLATION) Cholecystectomy: No Lung Surgery: No Neurologic Surgery: No Orthopedic Surgery: No - Immunization History Td Vaccination: (unknown) Immunization Up to Date: Yes - Suicide/Smoking/Psychosocial Hx Smoking Status: Yes Smoking History: Never smoked Years of Tobacco Use: 0 Have you smoked in the past 12 months: No Number of Cigarettes Smoked Daily: 0 If you are a former smoker, when did you quit?: Over 25 years ago Cigars Per Day: 0 Information on smoking cessation initiated: No Hx Alcohol Use: No Drug/Substance Use Hx: No Substance Use Type: None Hx Substance Use Treatment: No <Sherin Agarwal - Last Filed: 11/23/17 18:52> - Past Medical History Allergies/Adverse Reactions: Allergies Allergy/AdvReac Type Severity Reaction Status Date / Time No Known Allergies Allergy Verified 11/23/17 15:27 Home Medications: Ambulatory Orders Dofetilide [Tikosyn (RESTRICTED TO CARDIOLOGY) -] 250 mcg PO BID 10/30/12 Diltiazem Cd [Cardizem Cd -] 240 mg PO DAILY 08/12/14 Calcium Carbonate/Vitamin D3 [Oyster Shell 500-Vit D3 200 Tb] 1 each PO BID 04/17 Simvastatin [Zocor -] 40 mg PO HS 06/09/16 Metoprolol Tartrate [Lopressor -] 50 mg PO DAILY tablet 06/12/16 Valsartan [Diovan] 80 mg PO DAILY tablet 06/12/16 Warfarin Na [Coumadin -] 5 mg PO DAILY@18 tablet 06/22/17 Review of Systems - Review of Systems Able to Perform ROS?: Yes Comments:: 11/23/17 17:45 Constitutional - Pt denies Fever, Chills, weakness. +decreased appetite. HEENT: Denies vision changes, sore throat RESPIRATORY: +cough. Denies sob, hemoptysis CARDIAC: Denies chest pain, palpitations, lightheadedness, leg swelling ABD/GI: Denies abd pain, nausea, vomiting, blood per rectum, melena, diarrhea : Denies dysuria, frequency, discharge MUSCULOSKELETAL - Denies back pain, joint swelling SKIN - Denies bruising, erythema, rash NEUROLOGICAL: Denies headache, numbness, focal weakness, tingling, ataxia, weakness HEMATOLOGIC: Denies anemia, easy bruising, easy bleeding <Orly Peterson - Last Filed: 11/23/17 17:45> *Physical Exam - Vital Signs Last Vital Signs Temp Pulse Resp BP Pulse Ox 99.0 F 60 16 132/84 98 11/23/17 15:24 11/23/17 15:24 11/23/17 15:24 11/23/17 15:24 11/23/17 15:24 - Physical Exam Comments: 11/23/17 17:45 GENERAL: The patient is awake, alert, and fully oriented, Nontoxic - in no acute distress. HEAD: Normocephalic, atraumatic. EYES: Extraocular movements intact, sclera anicteric, conjunctiva clear. ENT: Normal voice, +Dry mucous membranes. NECK: Normal range of motion, supple without lymphadenopathy, JVD, or masses. LUNGS: +Minimally coarse but clear breath sounds. Breath sounds equal,No wheezes, no crackles, no rales. HEART: Regular rate and rhythm, normal S1 and S2 without murmur, rub or gallop. ABDOMEN: Soft, nontender, normoactive bowel sounds. No guarding, no rebound. No masses. EXTREMITIES: Normal range of motion, no edema. No clubbing or cyanosis. No cords , erythema, or tenderness. NEUROLOGICAL: Fully Oriented, Alert, Normal Mood/Affect, Motor Strength 5/5. No facial asymmetry, Normal speech. SKIN: Warm, Dry, normal turgor, no rashes or lesions noted. <Orly Peterson - Last Filed: 11/23/17 17:45> - Vital Signs Last Vital Signs Temp Pulse Resp BP Pulse Ox 99.0 F 60 16 132/84 98 11/23/17 15:24 11/23/17 15:24 11/23/17 15:24 11/23/17 15:24 11/23/17 15:24 <Sherin Agarwal - Last Filed: 11/23/17 18:52> Heart Score/ECG Review - ECG Intrepretation Rhythm: Regular Rhythm (sb at 53 lvh with strain no change from previous ekg) <Sherin Agarwal - Last Filed: 11/23/17 18:52> ED Treatment Course - LABORATORY CBC & Chemistry Diagram: 11/23/17 15:46 11/23/17 15:46 - ADDITIONAL ORDERS Additional order review: Laboratory Results 11/23/17 11/23/17 15:46 15:46 PT with INR 70.10 H INR 6.20 H* D Sodium 141 Potassium 3.7 Chloride 106 Carbon Dioxide 26 Anion Gap 9 BUN 13 Creatinine 0.8 Creat Clearance w eGFR > 60 Random Glucose 104 Calcium 7.9 L Total Bilirubin 0.3 D AST 16 ALT 20 Alkaline Phosphatase 75 Total Protein 6.3 L Albumin 3.0 L 11/23/17 15:46 RBC 4.02 MCV 88.3 MCHC 33.7 RDW 15.3 MPV 9.9 Neutrophils % 46.7 Lymphocytes % 41.8 H D Monocytes % 11.2 H Eosinophils % 0.0 Basophils % 0.3 - Medications Given in the ED: ED Medications Discontinued Medications Generic Name Dose Route Start Last Admin Trade Name Radha PRN Reason Stop Dose Admin Sodium Chloride 250 ml 11/23/17 17:26 11/23/17 17:28 Normal Saline - IV 11/23/17 17:27 250 ml ONCE STA Administration <Orly Peterson - Last Filed: 11/23/17 17:45> - LABORATORY CBC & Chemistry Diagram: 11/23/17 15:46 11/23/17 15:46 <Sherin Agarwal - Last Filed: 11/23/17 18:52> Medical Decision Making - Medical Decision Making 11/23/17 18:41 I, Dr. Sherin Agarwal, attest that the scribes documentation that appears above has been prepared under my direction and personally reviewed by me. I confirmed that the note above accurately reflects all work, treatment, procedures, and medical decision-making performed by me. Pt's labs reviewed from today, pt with INR of 6.0 most likely secondary to taking levaquin and coumadin, Pt stable for dc home, but instructed to hold coumadin until INR repeated on Saturday, case discussed with Dr orosco who agreed with this dc plan Pt feeling better at time of discharge and even feels a little hungry 11/23/17 18:49 11/23/17 18:51 <Sherin Agarwal - Last Filed: 11/23/17 18:52> *DC/Admit/Observation/Transfer - Attestations Scribe Attestion: 11/23/17 17:46 Documentation prepared by Orly Peterson, acting as hospital medical assistant for Sherin Agarwal MD <Orly Peterson - Last Filed: 11/23/17 17:45> - Discharge Dispostion Admit: No <Sherin Agarwal - Last Filed: 11/23/17 18:52> Diagnosis at time of Disposition: Fatigue, Elevated INR - Discharge Dispostion Disposition: HOME Condition at time of disposition: Stable - Referrals Referrals: Nicolas Orosco MD [Primary Care Provider] - - Patient Instructions Additional Instructions: pt to hold coumadin for the next 48hrs, pt may complete course of antibiotocs with levaquin, Pt to go to Dr. Orosco office on Saturday for repeat INR ,return to ED for any signs of bleeding, fever, trouble breathing or as needed - Post Discharge Activity
[2017-11-23 16:08] LABS: BASO % 0.3 % (0-2.0); HEMATOCRIT 35.5 % (32.4-45.2); LYMPH % 41.8 % (8-40); MCH 29.8 pg (25.7-33.7); MCHC 33.7 g/dl (32.0-36.0); MEAN CELL VOLUME 88.3 fl (80-96); MEAN PLT VOLUME 9.9 fl (7.5-11.1); MONO % 11.2 % (3.8-10.2); NEUT % 46.7 % (42.8-82.8); PLATELET COUNT 152 K/MM3 (134-434); RBC 4.02 M/mm3 (3.60-5.2); RDW 15.3 % (11.6-15.6); WHITE BLOOD COUNT 4.3 K/mm3 (4.0-10.0)
[2017-11-23 16:56] LABS: ALK PHOS 75 U/L (45-117); ANION GAP 9 (8-16); BILIRUBIN,TOTAL 0.3 mg/dL (0.2-1.0); BLOOD UREA NITROGEN 13 mg/dL (7-18); CALCIUM 7.9 mg/dL (8.5-10.1); CHLORIDE 106 mmol/L (98-107); CO2 26 mmol/L (21-32); CREATININE 0.8 mg/dL (0.55-1.02); GLUCOSE,RANDOM 104 mg/dL (74-106); POTASSIUM 3.7 mmol/L (3.5-5.1); SGOT/AST 16 U/L (15-37); SGPT/ALT 20 U/L (12-78); SODIUM 141 mmol/L (136-145); TOT PROT 6.3 g/dl (6.4-8.2)
[2017-11-23 16:57] LABS: PROTHROMBIN TIME (PATIENT) 70.1 SEC (9.98-11.88)
[2017-11-23 17:03] LABS: INR 6.2 (0.82-1.09)
[2017-11-23] MEDS ORDERED: SODIUM CHLORIDE 0.9% 500 ML INFUS.BAG IV STA (17:26)
[2017-11-23 18:30] VITALS: BP 129/62; PULSE 56; TEMP 98.4
--- NOTE | 2017-11-24 21:35 | EKG ---
Test Reason : Blood Pressure : / mmHG Vent. Rate : 053 BPM Atrial Rate : 053 BPM P-R Int : 138 ms QRS Dur : 076 ms QT Int : 496 ms P-R-T Axes : 000 044 044 degrees QTc Int : 465 ms POOR DATA QUALITY, INTERPRETATION MAY BE ADVERSELY AFFECTED SINUS BRADYCARDIA VOLTAGE CRITERIA FOR LEFT VENTRICULAR HYPERTROPHY T WAVE ABNORMALITY, CONSIDER LATERAL ISCHEMIA ABNORMAL ECG WHEN COMPARED WITH ECG OF 22-JUN-2017 10:32, NO SIGNIFICANT CHANGE WAS FOUND Confirmed by ELODIA FAUSTIN MD ([id number]) on 11/24/2017 9:35:21 PM Referred By: Confirmed By:ELODIA FAUSTIN MD
== END 2017-11-23 18:55 | disposition home or self-care (01) ==
LOC: JER 15:02
DX: D68.8 Other specified coagulation defects (principal); R53.83 Other fatigue; Z87.01 Personal history of pneumonia (recurrent); Z79.2 Long term (current) use of antibiotics; I10 Essential (primary) hypertension; E11.9 Type 2 diabetes mellitus without complications; E78.00 Pure hypercholesterolemia, unspecified; I48.91 Unspecified atrial fibrillation; Z79.01 Long term (current) use of anticoagulants; Z87.891 Personal history of nicotine dependence
CPT/HCPCS: 36415; 71046-TC-FY; 80053; 85025; 85610; 93005; 93010; 99281-25

== ENCOUNTER 2018-10-06 14:21 | Emergency (ER) | payer OTHER | END 2018-10-06 18:43 | disposition left against medical advice (07) | LOC: JERFT 14:21 → JER 18:43 ==

== ENCOUNTER 2018-12-18 16:17 | Emergency (ER) | payer OTHER ==
[2018-12-18 16:39] VITALS: BP 156/90; PULSE 80; TEMP 97.5; BMI 25.8
--- NOTE | 2018-12-18 17:13 | PDOC ---
History of Present Illness <Calista Doshi - Last Filed: 12/18/18 18:27> - History of Present Illness Initial Comments: 78 year old female with PMH of afib (s/p failed ablation on Xarelto) presenting with maxillary pain and left knee pain after a mechanical trip and fall around a construction site near the bus stop today. One hour prior to presentation, she was walking and tripped over some rubble and fell forward hitting the front of her mouth and her left knee cap on the ground. She needed some assistance getting up then EMS brought her to the hospital. She denies pure head trauma, LOC, nausea, vomiting, or other symptoms. She does have lower extremity arthritis but has not fallen in the past. 12/18/18 17:43 <Jd Lee - Last Filed: 12/19/18 00:04> - General Chief Complaint: Injury Stated Complaint: FALL/ INJURY TO LEFT KNEE Time Seen by Provider: 12/18/18 17:13 Past History <Calista Doshi - Last Filed: 12/18/18 18:27> - Past Medical History Anemia: No Asthma: No Cancer: No Cardiac Disorders: Yes (AFIB) CVA: No COPD: No CHF: No Dementia: No Diabetes: Yes GI Disorders: No Disorders: No HTN: Yes Hypercholesterolemia: Yes Liver Disease: No Seizures: No Thyroid Disease: No - Surgical History Abdominal Surgery: No Appendectomy: No Cardiac Surgery: Yes (ABLATION) Cholecystectomy: No Lung Surgery: No Neurologic Surgery: No Orthopedic Surgery: No - Immunization History Td Vaccination: (unknown) Immunization Up to Date: Yes - Suicide/Smoking/Psychosocial Hx Smoking Status: Yes Smoking History: Never smoked Years of Tobacco Use: 0 Have you smoked in the past 12 months: No Number of Cigarettes Smoked Daily: 0 If you are a former smoker, when did you quit?: Over 25 years ago Cigars Per Day: 0 Information on smoking cessation initiated: No Hx Alcohol Use: No Drug/Substance Use Hx: No Substance Use Type: None Hx Substance Use Treatment: No <Jd Lee - Last Filed: 12/19/18 00:04> - Past Medical History Allergies/Adverse Reactions: Allergies Allergy/AdvReac Type Severity Reaction Status Date / Time No Known Allergies Allergy Verified 12/18/18 16:39 Home Medications: Ambulatory Orders Dofetilide [Tikosyn (RESTRICTED TO CARDIOLOGY) -] 250 mcg PO BID 10/30/12 Diltiazem Cd [Cardizem Cd -] 240 mg PO DAILY 08/12/14 Calcium Carbonate/Vitamin D3 [Oyster Shell 500-Vit D3 200 Tb] 1 each PO BID 04/17 Simvastatin [Zocor -] 40 mg PO HS 06/09/16 Metoprolol Tartrate [Lopressor -] 50 mg PO DAILY tablet 06/12/16 Valsartan [Diovan] 80 mg PO DAILY tablet 06/12/16 Warfarin Na [Coumadin -] 5 mg PO DAILY@18 tablet 06/22/17 Review of Systems - Review of Systems Constitutional: No: Chills, Diaphoresis, Fever HEENTM: No: Blurred Vision, Tearing Respiratory: No: Cough, Orthopnea, Shortness of Breath Cardiac (ROS): No: Edema, Irregular Heart Rate ABD/GI: No: Diarrhea, Nausea, Vomiting : No: Dysuria, Discharge Musculoskeletal: No: Back Pain, Joint Pain Integumentary: No: Dryness, Erythema Neurological: No: Headache, Numbness, Paresthesia Psychiatric: No: Anxiety, Depression Hematologic/Lymphatic: No: Anemia, Blood Clots, Easy Bleeding <Jd Lee - Last Filed: 12/19/18 00:04> *Physical Exam - Vital Signs Last Vital Signs Temp Pulse Resp BP Pulse Ox 97.5 F L 80 16 156/90 97 12/18/18 16:20 12/18/18 16:20 12/18/18 16:20 12/18/18 16:20 12/18/18 16:20 <Calista Doshi - Last Filed: 12/18/18 18:27> - Vital Signs Last Vital Signs Temp Pulse Resp BP Pulse Ox 97.5 F L 80 16 156/90 97 12/18/18 16:20 12/18/18 16:20 12/18/18 16:20 12/18/18 16:20 12/18/18 16:20 - Physical Exam General Appearance: Yes: Nourished, Appropriately Dressed. No: Apparent Distress HEENT: positive: EOMI, KAILA. negative: Normal ENT Inspection (poort dention with permanent retainers on top and bottom of the mouth. Fractured 8th tooth and loose 7th tooth. Swellign over the right zygomatic arch and mild erythema.) Neck: positive: Trachea midline, Normal Thyroid, Supple. negative: Tender, Rigid Respiratory/Chest: positive: Lungs Clear, Normal Breath Sounds. negative: Chest Tender, Respiratory Distress Cardiovascular: positive: Irregularly Irregular. negative: Tachycardia Gastrointestinal/Abdominal: positive: Normal Bowel Sounds, Flat, Soft. negative : Tender Lymphatic: negative: Adenopathy, Tenderness <Jd Lee - Last Filed: 12/19/18 00:04> Procedures - Laceration/Wound Repair Lip Wound Length: to 2.5 cm Wound Explored: clean Wound's Depth, Shape: superficial Irrigated w/ Saline: Yes Anesthesia: 1% Lidocaine Amount of Anesthetic (ccs): 1 Wound Repaired With: Sutures Suture Size/Type: 5:0 Number of Sutures: 2 Layer Closure: No Sterile Dressing Applied: No Splint Applied: No Sling Applied: No <Calista Doshi - Last Filed: 12/18/18 18:27> Medical Decision Making - Medical Decision Making 78 year old female with facial trauma after a mechanical trip and fall. Denies any LOC, nausea, or vomiting. Lac repair per procedure note with good resolution. Head CT x 2, facial bone CT, cervical c-spine CT, and left knee XR all negative. Will DC home with return precautions and follow up instructions. 12/18/18 18:47 <Jd Lee - Last Filed: 12/19/18 00:04> *DC/Admit/Observation/Transfer <Calista Doshi - Last Filed: 12/18/18 18:27> - Discharge Dispostion Decision to Admit order: No <Jd Lee - Last Filed: 12/19/18 00:04> Diagnosis at time of Disposition: Fall Qualifiers: Encounter type: initial encounter Qualified Code(s): W19.XXXA - Unspecified fall, initial encounter Fractured tooth Qualifiers: Encounter type: initial encounter Fracture type: closed Qualified Code(s): S02.5XXA - Fracture of tooth (traumatic), initial encounter for closed fracture - Discharge Dispostion Disposition: HOME Condition at time of disposition: Improved - Referrals Referrals: Nicolas Orosco MD [Primary Care Provider] - - Patient Instructions Printed Discharge Instructions: DI for Laceration Repair Additional Instructions: You have no fractures, please follow up with your PCP in one week. Please return to the ED if you have new or worsening symptoms. Please call [facility] [phone].
[2018-12-18] MEDS ORDERED: ACETAMINOPHEN 325 MG TABLET (FP) PO ONE (18:38)
[2018-12-18] MEDS ORDERED: DIPHTH,PERTUSS(ACELL),TET 0.5 ML DISP.SYRIN IM ONE ×2 (18:56→20:04)
[2018-12-18] MEDS ORDERED: ACETAMINOPHEN 325 MG TABLET (FP) ONE (19:04)
--- NOTE | 2018-12-19 00:05 | PDOC ---
Documentation entered by Naomi Wheeler SCRIBE, acting as scribe for Genet Francis DO. Genet Francis DO: This documentation has been prepared by the Summer thibodeaux Daisy, SCRIBE, under my direction and personally reviewed by me in its entirety. I confirm that the documentation accurately reflects all work, treatment, procedures, and medical decision making performed by me. Attending Attestation - Resident Resident Name: Jd Lee - ED Attending Attestation I have performed the following: I have examined & evaluated the patient, The case was reviewed & discussed with the resident, I agree w/resident's findings & plan - HPI HPI: 12/18/18 18:16 The patient is a 78 YOF with a PMH of afib (s/p failed ablation on Xarelto) presents to the ER s/p mechanical trip and fall at a construction site. She is now complaining of left knee pain and maxillary pain. She denies any prodromal symptoms. The patient denies chest pain, shortness of breath, headache and dizziness. Denies fever, chills, nausea, vomit, diarrhea and constipation. Denies dysuria, frequency, urgency and hematuria. Allergies: NKA Past surgical history: None reported. Social history: No reported alcohol, drug or cigarette use. PCP: Dr. Orosco - Physicial Exam PE: 12/18/18 18:45 ADULT PHYSICAL EXAM Constitutional: Awake, alert, oriented. No acute distress. Head: Normocephalic. Atraumatic Eyes: PERRL. EOMI. Conjunctivae are not pale. ENT: (+) Tenderness to the zygomatic arch and upper lip. (+) ecchymosis to the right cheek (+) Soft tissue swelling to the lip. (+) Small laceration repair on the upper lip. (+) 7th tooth is loose and 8th tooth is broken at the base. (+) Small amount of oozing blood. Mandible is intact. Cardiovascular: Regular rate. (+) Irregular rhythm. S1, S2 regular. Distal pulses are 2+ and symmetric. Pulmonary/Chest: No evidence of respiratory distress. Clear to auscultation bilaterally No wheezing, rales or rhonchi. Abdominal: Soft and non-distended. There is no tenderness. No rebound, guarding or rigidity. Back: No C, T, or L tenderness. Musculoskeletal: No edema. No cyanosis. No clubbing. No calf tenderness. Radial/pedal pulses are intact and 2+ bilaterally. (+) Limited ROM actively. (+ ) FROM passively. No hip tenderness, Pelvis is stable. (+) Left knee laceration with small bruise to the anterior aspect. Skin: Skin is warm and dry. Neurological: Alert and oriented to person, place, and time. Cranial nerves II -XII are grossly intact. Psychiatric: Good eye contact. Normal interaction, affect and behavior. 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
== END 2018-12-19 00:17 | disposition home or self-care (01) ==
LOC: JER 16:17
PROC: 0CQ0XZZ Repair Upper Lip, External Approach (ICD-10-PCS; principal; 2018-12-18)
PROC: 3E0234Z Introduction of Serum, Toxoid and Vaccine into Muscle, Percutaneous Approach (ICD-10-PCS; 2018-12-18)
DX: S01.511A Laceration without foreign body of lip, initial encounter (principal); S02.5XXA Fracture of tooth (traumatic), initial encounter for closed fracture; S03.2XXA Dislocation of tooth, initial encounter; W18.39XA Other fall on same level, initial encounter; Y93.89 Activity, other specified; Y92.480 Sidewalk as the place of occurrence of the external cause; Y99.8 Other external cause status
CPT/HCPCS: 70450-TC; 70486-TC; 72125-TC; 73560-TC-LT-FY; 90715; 99281-25

== ENCOUNTER 2019-07-19 18:43 | Emergency (ER) | payer OTHER ==
[2019-07-19 18:53] VITALS: TEMP 97.4; BMI 29.0
[2019-07-19] MEDS ORDERED: dilTIAZem HCL 50 MG/10 ML - 10 ML VIAL IVPUSH ONE ×2 (18:55→19:30)
[2019-07-19] MEDS ORDERED: ONDANSETRON 4 MG/2 ML VIAL IVPUSH ONE (19:05)
[2019-07-19] MEDS ORDERED: ONDANSETRON 4 MG/2 ML VIAL ONE (19:08)
--- NOTE | 2019-07-19 19:14 | PDOC ---
Documentation entered by Caroline Bran SCRIBE, acting as scribe for Gertrudis Melgoza MD. Gertrudis Melgoza MD: This documentation has been prepared by the tereibe, Caroline Bran SCRIBE, under my direction and personally reviewed by me in its entirety. I confirm that the documentation accurately reflects all work, treatment, procedures, and medical decision making performed by me. Attending Attestation - Resident Resident Name: Pamella Heard - ED Attending Attestation I have performed the following: I have examined & evaluated the patient, The case was reviewed & discussed with the resident, I agree w/resident's findings & plan, Exceptions are as noted - HPI HPI: 07/19/19 19:00 79-year-old female brought in by ambulance for palpitations and vomiting. She has a long-standing history of atrial fibrillation and is on anticoagulation. 07/19/19 19:04 The patient is a 79-year-old female with a past medical history significant for Afib (on Xarelto), HTN, HLD, and DM who presents to the emergency department via EMS for palpitations and vomiting. The patient has a chronic history of Afib (on coumadin), presents initially at 160 bpm. Allergies:NKDA PCP: William Orosco - Physicial Exam PE: 07/19/19 19:05 GENERAL: +in mild acute distress. Well developed, well nourished. Awake and alert. HEENT: Normocephalic, atraumatic. PERRLA, EOMI. No conjunctival pallor. Sclera are non- icteric. Moist mucous membranes. Oropharynx is clear. NECK: Supple. Full ROM. No JVD. Carotid pulses 2+ and symmetric, without bruits. CARDIOVASCULAR: +tachycardia. No murmurs, rubs, or gallops. PULMONARY: No evidence of respiratory distress. ABDOMINAL: Soft. Non-tender. Non-distended. No rebound or guarding. MUSCULOSKELETAL Normal range of motion at all joints. No bony deformities or tenderness. No CVA tenderness. EXTREMITIES: No cyanosis. No clubbing. No edema. No calf tenderness. SKIN: Warm and dry. Normal capillary refill. No rashes. No jaundice. NEUROLOGICAL: Alert, awake, appropriate. Cranial nerves 2-12 intact. PSYCHIATRIC: Cooperative. Good eye contact. Appropriate mood and affect. - Medical Decision Making 07/19/19 19:14 79-year-old female with a history of atrial fibrillation on Eliquis developed palpitations while at home. Past medical history atrial fibrillation, hypertension 07/19/19 19:15 Patient's primary care physician is Dr. Gee Her coal chute worker is Dr. Caballero 07/19/19 19:26 Patient was given IV Cardizem 5 mg twice and now her heart rate is btwn 100-105 with AC=487/95 -she has not taken her evening meds including b german which will given now 07/19/19 19:31 07/19/19 21:39 07/19/19 21:57 We discussed this patient with her coal chute worker Dr. Genaro Keller and he states that this patient can be discharged home as long as she is not short of breath does not have chest pain. She has a long-standing history of atrial fibrillation and does not want ablation done -labs reviewed plan continue her eliquis and followup with DR Pereira 07/19/19 22:11 07/19/19 22:13
[2019-07-19] MEDS ORDERED: METOPROLOL TARTRATE 50 MG TABLET (FP) PO ONE (19:25)
[2019-07-19 19:32] LABS: BASO % 0.5 % (0-2.0); HEMOGLOBIN 12.5 GM/dL (10.7-15.3); LYMPH % 35.9 % (8-40); MCH 30.2 pg (25.7-33.7); MCHC 32.9 g/dl (32.0-36.0); MEAN CELL VOLUME 91.8 fl (80-96); MEAN PLT VOLUME 10.3 fl (7.5-11.1); NEUT % 57.6 % (42.8-82.8); PLATELET COUNT 195 K/MM3 (134-434); RBC 4.14 M/mm3 (3.60-5.2); RDW 14.4 % (11.6-15.6); WHITE BLOOD COUNT 6.8 K/mm3 (4.0-10.0)
--- NOTE | 2019-07-19 19:36 | PDOC ---
History of Present Illness - General Chief Complaint: Palpitations Stated Complaint: VOMITING, PALPITATIONS Time Seen by Provider: 07/19/19 18:54 History Source: Patient Exam Limitations: No Limitations - History of Present Illness Initial Comments: Pt is a 79 yo F, with PMH of Afib (partial ablation 2017, on Eliquis, toprol/ tikosyn/cardizem), HTN, HLD, who is presenting with "heart racing in my chest," b/l arm tingling, nausea, and 2 episodes NBNB vomiting since 5 pm this afternoon. Pt states she was cooking in the kitchen with no exertion when the discomfort began, then had n/v. No associated chest pain, SOB, or diaphoresis. Pt states she has had similar symptoms in the past with Afib RVR, but has not had these symptoms since the partial ablation (has required cardizem drip per pt ); pt does not know if she is ever in sinus rhthym. Pt does endorse new stress at home (sister in hospital today). Pt denies any recent fevers/chills, headache , vision changes, syncope, chest pain,SOB, abdominal pain, urinary symptoms, diarrhea/constipation, or leg swelling. Allergies: NKDA PCP: Dr. Nicolas Orosco Cards: Dr. Yo Social: Pt denies any cigarette, alcohol, or drug use. Pt denies any recent travel or sick contacts. Surgical: cardiac ablation (done at [facility], 2018) Family: no relevant history. 07/19/19 19:56 07/19/19 20:14 Past History - Travel Traveled outside of the country in the last 30 days: No Close contact w/someone who was outside of country & ill: No - Past Medical History Allergies/Adverse Reactions: Allergies Allergy/AdvReac Type Severity Reaction Status Date / Time No Known Allergies Allergy Verified 07/19/19 18:50 Home Medications: Ambulatory Orders Dofetilide [Tikosyn (RESTRICTED TO CARDIOLOGY) -] 250 mcg PO BID 10/30/12 Diltiazem Cd [Cardizem Cd -] 240 mg PO DAILY 08/12/14 Calcium Carbonate/Vitamin D3 [Oyster Shell 500-Vit D3 200 Tb] 1 each PO BID 04/17 Simvastatin [Zocor -] 40 mg PO HS 06/09/16 Metoprolol Tartrate [Lopressor -] 50 mg PO DAILY tablet 06/12/16 Valsartan [Diovan] 80 mg PO DAILY tablet 06/12/16 Warfarin Na [Coumadin -] 5 mg PO DAILY@18 tablet 06/22/17 Cephalexin Monohydrate [Keflex -] 500 mg PO BID 7 Days #14 capsule 07/19/19 Anemia: No Asthma: No Cancer: No Cardiac Disorders: Yes (AFIB) CVA: No COPD: No CHF: No Dementia: No Diabetes: Yes GI Disorders: No Disorders: No HTN: Yes Hypercholesterolemia: Yes Liver Disease: No Seizures: No Thyroid Disease: No - Surgical History Abdominal Surgery: No Appendectomy: No Cardiac Surgery: Yes (ABLATION) Cholecystectomy: No Lung Surgery: No Neurologic Surgery: No Orthopedic Surgery: No - Immunization History Td Vaccination: (unknown) Immunization Up to Date: Yes - Psycho Social/Smoking Cessation Hx Smoking Status: Yes Smoking History: Never smoked Years of Tobacco Use: 0 Have you smoked in the past 12 months: No Number of Cigarettes Smoked Daily: 0 If you are a former smoker, when did you quit?: Over 25 years ago Cigars Per Day: 0 Hx Alcohol Use: No Drug/Substance Use Hx: No Substance Use Type: None Hx Substance Use Treatment: No Cardiac Specific PMH - Complaint Specific PMHX Abdominal Aortic Aneurysm: No Angina: No Cardiac Arrhythmia: Yes (afib) Cardiac Stent: No GERD: No Myocardial Infarction: No Pacemaker: No Pulmonary Embolus: No Valvular Heart Disease: No Peripheral Vascular Disease: No Review of Systems - Review of Systems Able to Perform ROS?: Yes Is the patient limited [place]an proficient: No Constitutional: Yes: Weight Stable. No: Chills, Fever, Loss of Appetite, Malaise, Weakness HEENTM: No: Recent change in vision, Nose Congestion, Throat Pain, Throat Swelling Respiratory: No: Cough, Orthopnea, Shortness of Breath Cardiac (ROS): Yes: Irregular Heart Rate, Palpitations. No: Chest Pain, Edema, Lightheadedness, Syncope, Chest Tightness ABD/GI: Yes: Nausea, Vomiting. No: Constipated, Diarrhea, Poor Appetite, Poor Fluid Intake, Abdominal cramping : No: Burning, Dysuria, Frequency, Flank Pain, Hematuria, Pain, Urgency Musculoskeletal: No: Back Pain, Muscle Weakness Integumentary: No: Flushing, Rash Neurological: Yes: Paresthesia (b/l hand tingling). No: Headache, Weakness, Unsteady Gait, Dizziness Psychiatric: Yes: Stressors. No: Sleep Pattern Change, Change in Appetite Endocrine: No: Increased Urine Hematologic/Lymphatic: No: Anemia, Blood Clots, Easy Bleeding, Easy Bruising All Other Systems: Reviewed and Negative *Physical Exam - Vital Signs Last Vital Signs Temp Pulse Resp BP Pulse Ox 97.4 F L 80 20 111/95 98 07/19/19 18:45 07/19/19 21:46 07/19/19 18:45 07/19/19 21:46 07/19/19 21:46 - Physical Exam Comments: HTN, tachycardic (120s-140s on exam), pt afebrile. Pt appears anxious, normal body habitus. Pt alert and oriented x3. sap hana developer generally intact, muscular strength and sensation intact. No midline spinal tenderness, step-offs, or crepitus. Head normocephalic, atraumatic. Eyes PERRLA, EOMI. Oropharynx without erythema or exudates, no LAD b/l. No nasal congestion. Hearing intact. +Tachycardic. Clear heart sounds, S1/S2, no JVD, b/l pedal edema, or heart murmur. Clear lung sounds, no respiratory distress, wheezes, crackles, or accessory muscle use. No abdominal or CVA tenderness to palpation, no rebound, no guarding. Abdomen soft, non-distended, and with normoactive bowel sounds. Skin without jaundice or rash. 07/19/19 20:36 Vital Signs - Vital Signs #1 Time: 19:45 Blood Pressure: 111/95 BP Location: Left Arm Blood Pressure Position: Sitting Pulse Rate: 80 O2 Sat by Pulse Oximetry (%): 98 Oxygen Delivery Method: Room Air ED Treatment Course - LABORATORY CBC & Chemistry Diagram: 07/19/19 19:19 07/19/19 20:24 - ADDITIONAL ORDERS Additional order review: Laboratory Results 07/19/19 07/19/19 07/19/19 20:24 20:15 19:19 PT with INR 13.60 H INR 1.15 H PTT (Actin FS) 55.8 H Sodium 142 Potassium 3.8 Chloride 109 H Carbon Dioxide 25 Anion Gap 8 BUN 14.6 Creatinine 0.9 Est GFR (CKD-EPI)AfAm 70.98 Est GFR (CKD-EPI)NonAf 61.24 Random Glucose 112 H Calcium 9.0 Magnesium 2.2 Total Bilirubin 0.4 AST 15 ALT 16 Alkaline Phosphatase 100 Creatine Kinase 44 Troponin I 0.02 Total Protein 7.2 Albumin 3.4 Urine Color Yellow Urine Appearance Clear Urine pH 7.0 Ur Specific [place] 1.016 Urine Protein Negative Urine Glucose (UA) Negative Urine Ketones Trace H Urine Blood Negative Urine Nitrite Negative Urine Bilirubin Negative Urine Urobilinogen 0.2 Ur Leukocyte Esterase 2+ H Urine WBC (Auto) 7 Urine RBC (Auto) 3 Urine Casts (Auto) 2 U Epithel Cells (Auto) 3.3 Urine Bacteria (Auto) 136.9 07/19/19 07/19/19 19:19 19:19 PT with INR INR PTT (Actin FS) Sodium Cancelled Potassium Cancelled Chloride Cancelled Carbon Dioxide Cancelled Anion Gap Cancelled BUN Cancelled Creatinine Cancelled Est GFR (CKD-EPI)AfAm Cancelled Est GFR (CKD-EPI)NonAf Cancelled Random Glucose Cancelled Calcium Cancelled Magnesium Cancelled Total Bilirubin Cancelled AST Cancelled ALT Cancelled Alkaline Phosphatase Cancelled Creatine Kinase Cancelled Troponin I Cancelled Total Protein Cancelled Albumin Cancelled Urine Color Urine Appearance Urine pH Ur Specific [place] Urine Protein Urine Glucose (UA) Urine Ketones Urine Blood Urine Nitrite Urine Bilirubin Urine Urobilinogen Ur Leukocyte Esterase Urine WBC (Auto) Urine RBC (Auto) Urine Casts (Auto) U Epithel Cells (Auto) Urine Bacteria (Auto) 07/19/19 19:19 RBC 4.14 MCV 91.8 MCHC 32.9 RDW 14.4 MPV 10.3 Neutrophils % 57.6 D Lymphocytes % 35.9 Monocytes % 6.0 Eosinophils % 0.0 Basophils % 0.5 - RADIOLOGY Radiology Studies Ordered: Category Date Time Status CHEST X-RAY PORTABLE* [RAD] Stat Radiology 07/19/19 18:56 Taken - Medications Given in the ED: ED Medications Discontinued Medications Generic Name Dose Route Start Last Admin Trade Name Freq PRN Reason Stop Dose Admin Diltiazem HCl 5 mg 07/19/19 18:55 07/19/19 19:29 Cardizem Injection - IVPUSH 07/19/19 18:56 5 mg ONCE ONE Administration Diltiazem HCl 5 mg 07/19/19 19:30 07/19/19 19:52 Cardizem Injection - IVPUSH 07/19/19 19:31 5 mg ONCE ONE Administration Sodium Chloride 500 mls @ 1,000 mls/hr 07/19/19 19:40 07/19/19 20:51 Normal Saline - IV 07/19/19 20:09 1,000 mls/hr ASDIR STA Administration Metoprolol Tartrate 50 mg 07/19/19 19:25 07/19/19 20:28 Lopressor - PO 07/19/19 19:26 50 mg ONCE ONE Administration Ondansetron HCl 4 mg 07/19/19 19:05 07/19/19 19:30 Zofran Injection IVPUSH 07/19/19 19:06 4 mg ONCE ONE Administration Medical Decision Making - Critical Care Time Total Critical Care Time (minutes): 35 Critical Care Statement: The care of this patient involved high complexity decision making to prevent further life threatening deterioration of the patient 's condition and/or to evaluate & treat vital organ system(s) failure or risk of failure. - Medical Decision Making Pt was seen at bedside, also will be seen by attending Dr. Melgoza. Pt presenting with palpitations, nausea/vomiting, likely 2/2 uncontrolled Afib- RVR. Will evaluate for ACS, electrolyte imbalances, infection. Pt endorses medication compliance. Pt not hypoxic and is on AC, but will consider PE if tachycardia does not improve with interventions. Provided 5 mg IV diltiazem, 4 mg IV zofran for improvement of nausea and tachycardia. Will continue to reassess pt and monitor for symptomatic improvement. ECG: AFib RVR, LVH, (Hr 147, QRS 86, QTc 472). TWIs in lateral leads, present on prior. No significant changes from prior ECG. Pt required additional 5 mg IV dilt, provided PO dose of evening metoprolol and eliquis. Pt now asymptomatic. Providing 500 mL IV NS as pt appears dry. BP now normotensive. CBC WNL Lab hemolyzed CMP, cardiac profile. Re-sent to lab. 07/19/19 20:44 CMP WNL Trop <.02 with no new EKG changes (repeat EKG showed non-sustained PVCs) UA showed UTI -- treating with PO keflex Providing PO pepcid for reflux/stomach upset Paged cardiology team (Dr. Yo/Randall) 07/19/19 21:44 Pt ambulatory in ED, vitals improved, no symptoms at this time, tolerated PO intake without vomiting. Dr. Pereira agrees with discharge with strict return precautions and f/u with Dr. Yo Pt safe for d/c with PCP and cards f/u. Strict return precautions provided with pt understanding. 07/19/19 21:59 07/19/19 22:05 Discharge - Discharge Information Problems reviewed: Yes Clinical Impression/Diagnosis: Atrial fibrillation with RVR, History of PSVT (paroxysmal supraventricular tachycardia) Condition: Improved Disposition: HOME - Admission No - Follow up/Referral Referrals: Dario Yo MD [Staff Physician] - Nicolas Orosco MD [Staff Physician] - - Patient Discharge Instructions Patient Printed Discharge Instructions: DI for Atrial Fibrillation Additional Instructions: You were seen in the ER today for atrial fibrillation, which improved after medications. The results of your labs and imaging today were normal. Please follow-up with your primary care doctor and cardiology within 1-2 days to discuss your visit and make sure your symptoms have improved. Please return to the ER if you have any worsening pain, development of fevers or chills, loss of consciousness, inability to tolerate food or fluids, or any other concerns. I have sent medications to your pharmacy. Please take these medications as prescribed. - Post Discharge Activity
[2019-07-19] MEDS ORDERED: SODIUM CHLORIDE 500 ML IV STA (19:40)
[2019-07-19] MEDS ORDERED: APIXABAN 5 MG TABLET ONE (19:55)
[2019-07-19] MEDS ORDERED: METOPROLOL TARTRATE 50 MG TABLET (FP) ONE (19:55)
[2019-07-19 20:02] LABS: INR 1.15 (0.83-1.09); PROTHROMBIN TIME (PATIENT) 13.6 SEC (9.7-13.0)
[2019-07-19 20:05] LABS: ACTIVATED PTT 55.8 SECONDS (25.2-36.5)
[2019-07-19] MEDS: APIXABAN 5 MG TABLET PO SCH ×2 (20:28→22:05)
[2019-07-19 20:46] LABS: EPI CELLS 3.3 /HPF (0-5/HPF); HYALINE CASTS 2 /lpf (0-8); URINE APPEARANCE CLEAR; URINE BACTERIA 136.9 /hpf (NEGATIVE); URINE BILIRUBIN NEGATIVE (NEGATIVE); URINE COLOR YELLOW; URINE GLUCOSE (UA) NEGATIVE (NEGATIVE); URINE KETONE TRACE (NEGATIVE); URINE LEUK ESTERASE 2+ (NEGATIVE); URINE NITRITE NEGATIVE (NEGATIVE); URINE PROTEIN NEGATIVE (NEGATIVE); URINE RBC 3 /hpf (0-4); URINE UROBILINOGEN 0.2 mg/dL (0.2-1.0); URINE WBC 7 /hpf (0-5)
[2019-07-19 21:11] LABS: ALBUMIN 3.4 g/dl (3.4-5.0); BILIRUBIN,TOTAL 0.4 mg/dL (0.2-1); BLOOD UREA NITROGEN 14.6 mg/dL (7-18); CREATININE 0.9 mg/dL (0.55-1.3); MAGNESIUM 2.2 mg/dL (1.8-2.4); POTASSIUM 3.8 mmol/L (3.5-5.1); TOT PROT 7.2 g/dl (6.4-8.2)
[2019-07-19] MEDS ORDERED: CEPHALEXIN MONOHYDRATE 500 MG CAPSULE (UD) PO ONE (21:35)
[2019-07-19] MEDS ORDERED: FAMOTIDINE 20 MG TABLET PO ONE (21:58)
[2019-07-19] MEDS ORDERED: FAMOTIDINE 20 MG/50 ML IVPB 20 MG/50 ML MG IVPB ONE (22:09)
[2019-07-19] MEDS ORDERED: CEPHALEXIN MONOHYDRATE 500 MG CAPSULE (UD) ONE (22:09)
[2019-07-19 23:00] VITALS: BP 142/84; PULSE 101
--- NOTE | 2019-07-20 10:03 | EKG ---
Test Reason : Blood Pressure : / mmHG Vent. Rate : 103 BPM Atrial Rate : 111 BPM P-R Int : 000 ms QRS Dur : 086 ms QT Int : 304 ms P-R-T Axes : 000 041 168 degrees QTc Int : 398 ms ATRIAL FIBRILLATION WITH RAPID VENTRICULAR RESPONSE WITH PREMATURE VENTRICULAR OR ABERRANTLY CONDUCTED COMPLEXES VOLTAGE CRITERIA FOR LEFT VENTRICULAR HYPERTROPHY ABNORMAL ECG WHEN COMPARED WITH ECG OF 19-JUL-2019 18:58, NO SIGNIFICANT CHANGE WAS FOUND Confirmed by BRITTA YOUNG, PALOMA ([id number]) on 07/20/2019 10:02:59 AM Referred By: Confirmed By:PALOMA CALLEJAS MD
--- NOTE | 2019-07-20 10:04 | EKG ---
Test Reason : Blood Pressure : / mmHG Vent. Rate : 147 BPM Atrial Rate : 122 BPM P-R Int : 000 ms QRS Dur : 086 ms QT Int : 302 ms P-R-T Axes : 000 045 206 degrees QTc Int : 472 ms ATRIAL FIBRILLATION WITH RAPID VENTRICULAR RESPONSE MODERATE VOLTAGE CRITERIA FOR LVH, MAY BE NORMAL VARIANT ABNORMAL ECG WHEN COMPARED WITH ECG OF 23-NOV-2017 16:56, ATRIAL FIBRILLATION HAS REPLACED SINUS RHYTHM VENT. RATE HAS INCREASED Confirmed by BRITTA YOUNG, PALOMA ([id number]) on 07/20/2019 10:04:21 AM Referred By: Confirmed By:PALOMA CALLEJAS MD
== END 2019-07-19 22:59 | disposition home or self-care (01) ==
LOC: JER 18:43
PROC: 3E033GC Introduction of Other Therapeutic Substance into Peripheral Vein, Percutaneous Approach (ICD-10-PCS; principal; 2019-07-19)
PROC: 3E033GC Introduction of Other Therapeutic Substance into Peripheral Vein, Percutaneous Approach (ICD-10-PCS; 2019-07-19)
PROC: 3E033GC Introduction of Other Therapeutic Substance into Peripheral Vein, Percutaneous Approach (ICD-10-PCS; 2019-07-19)
DX: I48.20 Chronic atrial fibrillation, unspecified (principal); Z79.01 Long term (current) use of anticoagulants; I10 Essential (primary) hypertension; E78.5 Hyperlipidemia, unspecified; Z86.79 Personal history of other diseases of the circulatory system
CPT/HCPCS: 36415; 71045-TC-FY; 80053; 81003; 82550; 83735; 84484; 85025; 85610; 85730; 87086; 93005; 93010; 96374; 96375; 96376; 99284-25; J7030

== ENCOUNTER 2019-09-07 15:22 | Emergency (ER) | payer OTHER ==
[2019-09-07 15:58] VITALS: BP 134/59; PULSE 54; TEMP 97.6; BMI 30.6
--- NOTE | 2019-09-07 15:58 | PDOC ---
Rapid Medical Evaluation Medical Evaluation: Allergies Allergy/AdvReac Type Severity Reaction Status Date / Time No Known Allergies Allergy Verified 07/19/19 18:50 I have performed a brief in-person evaluation of this patient. The patient presents with a chief complaint of: PMH of Afib (partial ablation 2017, on Eliquis), HTN, HLD, c/o posterior GODDARD since yesterday; denies vomiting, numbness/tingling/weakness of extremities; does not usually suffer from headaches Pertinent physical exam findings: in nad, no focal deficits I have ordered the following: Ct head The patient will proceed to the ED for further evaluation. 09/07/19 15:56
[2019-09-07] MEDS ORDERED: ACETAMINOPHEN 500 MG TABLET (FP) PO ONE (17:57)
[2019-09-07] MEDS ORDERED: METOCLOPRAMIDE HCL 10 MG TABLET (FP) PO ONE ×2 (17:57→18:02)
[2019-09-07] MEDS ORDERED: ACETAMINOPHEN 325 MG TABLET (FP) ONE (18:02)
--- NOTE | 2019-09-07 18:11 | PDOC ---
History of Present Illness - General Chief Complaint: Headache Stated Complaint: HEADACHE Time Seen by Provider: 09/07/19 15:56 - History of Present Illness Initial Comments: 09/10/19 12:52 79F PMH AF on eliquis, HTN, HLD, DM p/w 3 days of episodic headaches described as throbbing gradual onset from the front to back. No identifiable triggers. Relieved with acetaminophen, then gradually comes back. No numbness, tingling, focal weakness. Denies vision or hearing changes. Denies f/c, cough. Denies cp/ sob, n/v, abd pain, dysuria. Came to ED because of headaches have not resolved; concerned about aneurysm. Past History - Past Medical History Allergies/Adverse Reactions: Allergies Allergy/AdvReac Type Severity Reaction Status Date / Time No Known Allergies Allergy Verified 09/07/19 15:58 Home Medications: Ambulatory Orders Dofetilide [Tikosyn (RESTRICTED TO CARDIOLOGY) -] 250 mcg PO BID 10/30/12 Diltiazem Cd [Cardizem Cd -] 240 mg PO DAILY 08/12/14 Calcium Carbonate/Vitamin D3 [Oyster Shell 500-Vit D3 200 Tb] 1 each PO BID 04/17 Simvastatin [Zocor -] 40 mg PO HS 06/09/16 Metoprolol Tartrate [Lopressor -] 50 mg PO DAILY tablet 06/12/16 Valsartan [Diovan] 80 mg PO DAILY tablet 06/12/16 Apixaban [Eliquis -] 5 mg PO BID 09/07/19 Anemia: No Asthma: No Cancer: No Cardiac Disorders: Yes (AFIB) CVA: No COPD: No CHF: No Dementia: No Diabetes: Yes GI Disorders: No Disorders: No HTN: Yes Hypercholesterolemia: Yes Liver Disease: No Seizures: No Thyroid Disease: No - Surgical History Abdominal Surgery: No Appendectomy: No Cardiac Surgery: Yes (ABLATION) Cholecystectomy: No Lung Surgery: No Neurologic Surgery: No Orthopedic Surgery: No - Immunization History Td Vaccination: (unknown) Immunization Up to Date: Yes - Psycho Social/Smoking Cessation Hx Smoking Status: Yes Smoking History: Never smoked Years of Tobacco Use: 0 Have you smoked in the past 12 months: No Number of Cigarettes Smoked Daily: 0 If you are a former smoker, when did you quit?: Over 25 years ago Cigars Per Day: 0 Hx Alcohol Use: No Drug/Substance Use Hx: No Substance Use Type: None Hx Substance Use Treatment: No Review of Systems - Review of Systems Comments:: CONSTITUTIONAL: Denies F / C HEENT: Endorses headache. Denies changes in vision / hearing, diplopia, blurry vision RESP: Denies SOB, cough CARD: Denies chest pain GI: Denies N / V / D, abdominal pain, bloody stool : Denies dysuria SKIN: Denies rashes NEURO: Denies numbness, tingling, weakness MSK: Denies neck pain *Physical Exam - Vital Signs Last Vital Signs Temp Pulse Resp BP Pulse Ox 97.6 F 54 L 16 134/59 L 100 09/07/19 15:55 09/07/19 15:55 09/07/19 15:55 09/07/19 15:55 09/07/19 15:55 - Physical Exam GEN: Well appearing, NAD, comfortable. AAOx3. HEENT: NC/AT, CN II-XII grossly intact, EOMI, PERRLA. No facial asymmetry. Moist mucous membranes. Normal voice. Supple neck w/ FROM, no midline TTP, no nuchal rigidity. CV: S1/S2, RRR, no m/r/g LUNG: CTAB, no wheezes, crackles, rales, rhonchi. GI: Soft, ndnt, +BS, no guarding, no rebound. No masses. EXTREMITIES: No LE edema. No obvious deformities of all extremities. SKIN: Warm, dry, no rashes appreciated. PSYCH: Normal mood and affect. NEURO: Moving all extremities well. 5/5 UE strength b/l. 5/5 LE strength b/l. Sensation symmetric and intact throughout. No ataxia on FTN or heel-sloan. No pronator drift. ED Treatment Course - Medications Given in the ED: ED Medications Discontinued Medications Generic Name Dose Route Start Last Admin Trade Name Freq PRN Reason Stop Dose Admin Acetaminophen 975 mg 09/07/19 17:57 09/07/19 18:04 Tylenol - PO 09/07/19 17:58 975 mg ONCE ONE Administration Metoclopramide HCl 10 mg 09/07/19 17:57 09/07/19 18:04 Reglan - PO 09/07/19 17:58 10 mg ONCE ONE Administration Medical Decision Making - Medical Decision Making 09/07/19 18:05 79F PMH AF on eliquis, HTN, HLD, DM p/w 3 days of episodic gradual onset headaches improves w/ tylenol. Neurologically intact. RME: CT Head - reglan - tylenol CT head negative for acute pathology DC home w/ PCP f/u Discharge - Discharge Information Problems reviewed: Yes Clinical Impression/Diagnosis: Headache Qualifiers: Headache type: tension-type Condition: Stable Disposition: HOME - Admission No - Follow up/Referral Referrals: Nicolas Orosco MD [Primary Care Provider] - - Patient Discharge Instructions Patient Printed Discharge Instructions: DI for Headache Additional Instructions: Take tylenol as directed by the label for your headaches. Follow up with your Primary Care Physician in the next 5 days regarding your headaches. Keep a log of your headaches: when they happen and how they feel Continue your home medications as prescribed. Return to the Emergency Department if you experience: - worsening symptoms - change in the type of headache you have - change in behavior, personality, numbness, tingling, weakness of an arm or leg , changes in your vision or hearing - anything that concerns you - Post Discharge Activity
--- NOTE | 2019-09-07 18:21 | PDOC ---
Documentation entered by Raman Bentley SCRIBE, acting as scribe for Herbert Aly MD. Herbert Aly MD: This documentation has been prepared by the [employer]irvannie, SCRIBE, under my direction and personally reviewed by me in its entirety. I confirm that the documentation accurately reflects all work, treatment, procedures, and medical decision making performed by me. Attending Attestation - Resident Resident Name: Michael Fontanez - ED Attending Attestation I have performed the following: I have examined & evaluated the patient, The case was reviewed & discussed with the resident, I agree w/resident's findings & plan, Exceptions are as noted - HPI HPI: 09/07/19 18:00 79y F hx of afib xeralto, htn, dm, hl, presents with intermittent headache x 3 days, improves with tylenol but then returns. Pain is b/l frontal radiating to the back of the neck. pt denies any vision changes, n/v focal neuro complaints. Pt notes that she sleeps around 5 hrs a night and spends alot o time watching TV. Pt notes that sleep ususally helps her headache as well as tylenol. Pt denies any recent trauma, fever/chills. exam: general: well appearing, no distress card: slightly irregular pulm: cta b/l no wheezing neuro: moving all 4 extremitie spontaneously and symmetrically, no facial assymetry, sensation intact and symmetric in ue/le bilaterally, normal gait ct head was obtained in triage due to new onset headche and being on a/c and was negative will give pt tylenol/reglan for sx relief. anticipate dc with pmd fu - Physicial Exam PE: 09/07/19 18:20 see above - Medical Decision Making 09/07/19 18:20 see above
== END 2019-09-07 18:25 | disposition home or self-care (01) ==
LOC: JER 15:22
DX: R51 Headache (principal); I10 Essential (primary) hypertension; I48.91 Unspecified atrial fibrillation; Z79.01 Long term (current) use of anticoagulants; E78.00 Pure hypercholesterolemia, unspecified
CPT/HCPCS: 70450-TC; 99281-25

== ENCOUNTER 2020-04-28 01:40 | Inpatient (IN) | payer OTHER ==
[2020-04-28 01:55] VITALS: BMI 28.3
--- NOTE | 2020-04-28 02:02 | PDOC ---
Attending Attestation - Resident Resident Name: Jimym Greenberg - ED Attending Attestation I have performed the following: I have examined & evaluated the patient, The case was reviewed & discussed with the resident, I agree w/resident's findings & plan - HPI HPI: 04/28/20 06:46 see resident hpi - Physicial Exam PE: 04/28/20 06:46 see resident exam - Medical Decision Making 04/28/20 06:47 79-year-old female with complaints of palpitations and epigastric discomfort as well as chronic abdominal discomfort EKG shows atrial fibrillation with ST segment abnormalities in multiple leads unchanged from previous Of the abdomen and pelvis shows no significant acute abnormality Due to patient's age and risk factors will admit to telemetry for further observation Discharge - Discharge Information Problems reviewed: Yes Clinical Impression/Diagnosis: Palpitation, Epigastric pain Condition: Stable - Follow up/Referral Referrals: Nicolas Orosco MD [Primary Care Provider] - - Patient Discharge Instructions - Post Discharge Activity
--- NOTE | 2020-04-28 02:25 | PDOC ---
History of Present Illness - General Chief Complaint: Palpitations Stated Complaint: PALPITATIONS Time Seen by Provider: 04/28/20 01:52 - History of Present Illness Initial Comments: 04/28/20 02:17 79F PMH AF on eliquis, HTN, HLD, DM presents with palpitations, since resolved. She states she went to the bathroom and felt palpitations that lasted a minute or two then went away. She denies lightheadedness, chest pain, SOB, LOC. On ROS, she complains of chronic epigastric abdominal pain, worse with certain foods, sometimes with diarrhea, sometimes with constipation. Saw PMD one week ago for it and got bloodwork but no imaging. Also endorses 30lb weight loss since colonoscopy in December 2018. One episode of vomiting. No urinary symptoms. No fever/chills. ROS GENERAL/CONSTITUTIONAL: No fever or chills. No weakness. HEAD, EYES, EARS, NOSE AND THROAT: No change in vision. No ear pain or discharge. No sore throat. CARDIOVASCULAR: No chest pain or shortness of breath. palpitations RESPIRATORY: No cough, wheezing, or hemoptysis. GASTROINTESTINAL: No nausea, vomiting. occasional diarrhea and constipation. chronic abdominal pain GENITOURINARY: No dysuria, frequency, or change in urination. MUSCULOSKELETAL: No joint or muscle swelling or pain. No neck or back pain. SKIN: No rash NEUROLOGIC: No headache, vertigo, loss of consciousness, or change in strength/sensation. ENDOCRINE: No increased thirst. No abnormal weight change HEMATOLOGIC/LYMPHATIC: No anemia, easy bleeding, or history of blood clots. ALLERGIC/IMMUNOLOGIC: No hives or skin allergy. PE GENERAL: Awake, alert, and fully oriented, in no acute distress HEAD: No signs of trauma, normocephalic, atraumatic EYES: PERRLA, EOMI, sclera anicteric, conjunctiva clear ENT: Auricles normal inspection, hearing grossly normal, nares patent, oropharynx clear without exudates. Moist mucosa NECK: Normal ROM, supple, no lymphadenopathy, JVD, or masses LUNGS: No distress, speaks full sentences, clear to auscultation bilaterally HEART: Regular rate and irregula rhythm, normal S1 and S2, no murmurs, rubs or gallops, peripheral pulses normal and equal bilaterally. ABDOMEN: Soft, nontender, normoactive bowel sounds. No guarding, no rebound. No masses EXTREMITIES : Normal inspection, Normal range of motion, no edema. No clubbing or cyanosis. NEUROLOGICAL: Cranial nerves II through XII grossly intact. Normal speech, normal gait, no focal sensorimotor deficits SKIN: Warm, Dry, normal turgor, no rashes or lesions noted Last Vital Signs Temp Pulse Resp BP Pulse Ox 89.2 F L 99 H 18 128/83 98 04/28/20 02:19 04/28/20 02:19 04/28/20 02:19 04/28/20 02:19 04/28/20 02:19 MDM: 79F PMH AF on eliquis, HTN, HLD, DM presents with palpitations, since resolved. On ROS, also reports eepigastric pain. -EKG -CBC, CMP, lipase, coags, lactate 04/28/20 04:31 EKG: a-fib, rate 74, normal axis, normal QRS, QTc 468, non-specific ST and T wave changes CXR: no acute pathology Labs: K 3.3 Ca 8.2 Albumin 3.0 Trop neg x1 No signs of infection, anemia. Negative lipase, lactate Will get CT A/P because patient complains of epigastric pain and weight loss 04/28/20 05:54 CT A/P negative for acute pathology Admit for epigastric pain (atypical chest pain), report of palpitations at home (known a-fib) 04/28/20 06:04 04/28/20 07:03 -40meq PO KCl given -signed out to admitting team 04/28/20 07:03 Past History - Medical History Allergies/Adverse Reactions: Allergies Allergy/AdvReac Type Severity Reaction Status Date / Time No Known Allergies Allergy Verified 04/28/20 01:41 Home Medications: Ambulatory Orders Dofetilide [Tikosyn (RESTRICTED TO CARDIOLOGY) -] 250 mcg PO BID 10/30/12 Diltiazem Cd [Cardizem Cd -] 240 mg PO DAILY 08/12/14 Calcium Carbonate/Vitamin D3 [Oyster Shell 500-Vit D3 200 Tb] 1 each PO BID 06/09/16 Simvastatin [Zocor -] 40 mg PO HS 06/09/16 Metoprolol Tartrate [Lopressor -] 50 mg PO DAILY tablet 06/12/16 Valsartan [Diovan] 80 mg PO DAILY tablet 06/12/16 Apixaban [Eliquis -] 5 mg PO BID 09/07/19 Anemia: No Asthma: No Cancer: No Cardiac Disorders: Yes (AFIB) CVA: No COPD: No CHF: No Dementia: No Diabetes: Yes GI Disorders: No Disorders: No HTN: Yes Hypercholesterolemia: Yes Liver Disease: No Seizures: No Thyroid Disease: No - Surgical History Abdominal Surgery: No Appendectomy: No Cardiac Surgery: Yes (ABLATION) Cholecystectomy: No Lung Surgery: No Neurologic Surgery: No Orthopedic Surgery: No - Reproductive History Is Patient Now?: No - Immunization History Td Vaccination: (unknown) Immunization Up to Date: Yes - Psycho-Social/Smoking History Smoking Status: Yes Smoking History: Never smoked Years of Tobacco Use: 0 Have you smoked in the past 12 months: No Number of Cigarettes Smoked Daily: 0 If you are a former smoker, when did you quit?: Over 25 years ago Cigars Per Day: 0 Information on smoking cessation initiated: No - Substance Abuse Hx (Audit-C & DAST Scrn) How often the patient has a drink containing alcohol: Never Score: In Men: 4 or > Positive; In Women: 3 or > Positive: 0 Screen Result (Pos requires Nsg. Audit-10AR): Negative In the last yr the pt used illegal drug/Rx for NonMed reason: No Score: Yes response is considered Positive: 0 Screen Result (Positive result requires Nsg. DAST-10): Negative *Physical Exam - Vital Signs Last Vital Signs Temp Pulse Resp BP Pulse Ox 97.8 F 65 20 128/83 98 04/28/20 01:47 04/28/20 01:47 04/28/20 01:47 04/28/20 01:47 04/28/20 01:47 ED Treatment Course - LABORATORY CBC & Chemistry Diagram: 04/28/20 02:35 04/28/20 02:35 Discharge - Discharge Information Problems reviewed: Yes Clinical Impression/Diagnosis: Palpitation, Epigastric pain Condition: Stable - Admission Yes - Follow up/Referral - Patient Discharge Instructions - Post Discharge Activity
[2020-04-28 02:53] LABS: BASO % 0.1 % (0-2.0); HEMATOCRIT 34.5 % (32.4-45.2); HEMOGLOBIN 11.6 GM/dL (10.7-15.3); LYMPH % 44.9 % (8-40); MCH 31.2 pg (25.7-33.7); MCHC 33.5 g/dl (32.0-36.0); MEAN CELL VOLUME 93.1 fl (80-96); MONO % 7.8 % (3.8-10.2); NEUT % 47.2 % (42.8-82.8); PLATELET COUNT 150 K/MM3 (134-434); RBC 3.71 M/mm3 (3.60-5.2); RDW 14.6 % (11.6-15.6); WHITE BLOOD COUNT 4.5 K/mm3 (4.0-10.0)
[2020-04-28 03:07] LABS: INR 1.62 (0.83-1.09); PROTHROMBIN TIME (PATIENT) 19.2 SEC (9.7-13.0)
[2020-04-28 03:09] LABS: ACTIVATED PTT 57.1 SECONDS (25.2-36.5)
[2020-04-28 03:32] LABS: ALK PHOS 108 U/L (45-117); BILIRUBIN,TOTAL 0.4 mg/dL (0.2-1); BLOOD UREA NITROGEN 9.8 mg/dL (7-18); CALCIUM 8.2 mg/dL (8.5-10.1); CO2 24 mmol/L (21-32); CREATININE 0.9 mg/dL (0.55-1.3); GLUCOSE,RANDOM 126 mg/dL (74-106); LIPASE 48 U/L (73-393); POTASSIUM 3.3 mmol/L (3.5-5.1); SGOT/AST 12 U/L (15-37); SGPT/ALT 13 U/L (13-61); SODIUM 144 mmol/L (136-145); TOT PROT 6.5 g/dl (6.4-8.2)
[2020-04-28 05:33] LABS: ANION GAP 8 MMOL/L (8-16); CHLORIDE 112 mmol/L (98-107)
[2020-04-28] MEDS ORDERED: POTASSIUM CHLORIDE TABS 20 MEQ TABLET.ER (FP) PO ONE ×2 (06:48→08:47)
[2020-04-28] MEDS ORDERED: ACETAMINOPHEN 325 MG TABLET (FP) PO PRN (09:14)
[2020-04-28] MEDS ORDERED: VALSARTAN 80 MG TABLET (UD) PO SCH (10:00)
[2020-04-28] MEDS ORDERED: APIXABAN 5 MG TABLET PO SCH (10:00)
[2020-04-28] MEDS ORDERED: DOFETILIDE 0.25 MG CAPSULE PO SCH (10:00)
[2020-04-28] MEDS ORDERED: METOPROLOL TARTRATE 50 MG TABLET (FP) PO SCH (10:00)
[2020-04-28] MEDS ORDERED: CALCIUM 500MG/VIT-D 200 UNITS COMBO TABLET (FP) PO SCH (10:00)
[2020-04-28] MEDS ORDERED: VALSARTAN 80 MG TABLET (UD) ONE (10:16)
[2020-04-28] MEDS ORDERED: APIXABAN 5 MG TABLET ONE (10:17)
--- NOTE | 2020-04-28 12:35 | EKG ---
Test Reason : Blood Pressure : / mmHG Vent. Rate : 074 BPM Atrial Rate : 074 BPM P-R Int : 000 ms QRS Dur : 084 ms QT Int : 422 ms P-R-T Axes : 000 044 252 degrees QTc Int : 468 ms ATRIAL FIBRILLATION MODERATE VOLTAGE CRITERIA FOR LVH, MAY BE NORMAL VARIANT ABNORMAL ECG WHEN COMPARED WITH ECG OF 19-JUL-2019 20:35, QT HAS LENGTHENED Confirmed by ALMA ROSA YOUNG, AMISHA ([id number]) on 04/28/2020 12:35:22 PM Referred By: Confirmed By:AMISHA ST MD
[2020-04-28] MEDS ORDERED: PANTOPRAZOLE SODIUM 40 MG VIAL IVPUSH STA (13:38)
[2020-04-28 13:42] LABS: BLOOD UREA NITROGEN 6.9 mg/dL (7-18); CALCIUM 8.5 mg/dL (8.5-10.1); CREATININE 0.8 mg/dL (0.55-1.3); POTASSIUM 3.6 mmol/L (3.5-5.1)
[2020-04-28] MEDS ORDERED: PANTOPRAZOLE SODIUM 40 MG VIAL ONE (13:45)
--- NOTE | 2020-04-28 13:46 | CON.CARD ---
Consult Consult Specialty:: cardiology Reason for Consultation:: palpitations; bradycardia - History of Present Illness Chief Complaint: Pt A&Ox3; anxious; worries she may have colon CA, as her mother and sister had. No chest pain, palpitationss or dizziness. History of Present Illness: Ms. Lopez is a 79 yr old black woman with PMH AF on eliquis, dofetilide, diltiazem CD, and metoprolol tartrate (followed by Dr. Odell, EP), diastolic CHF, HTN, HLD, DM, anxiety, now presents with palpitations, since resolved. She states she went to the bathroom and felt palpitations that lasted a minute or two then went away. She denies lightheadedness, chest pain, SOB, LOC. On ROS, she complains of chronic epigastric abdominal pain, worse with certain foods, sometimes with diarrhea, sometimes with constipation. Saw PMD one week ago for it and got blood work but no imaging. Also endorses 30lb weight loss since colonoscopy in December 2018. One episode of vomiting. No urinary symptoms. No fever/chills. PMD: Nicolas Esquivel Engineering Model Maker: Srinath EP: Jose R - History Source History Provided By: Patient, Medical Record Limitations to Obtaining History: Poor Historian - Past Medical History Cardio/Vascular: Yes: AFIB (s/p ablation therapy), HTN, Hyperlipdemia Pulmonary: Yes: Sleep Apnea Reproductive: Yes: Postmenopausal ...: No - Past Surgical History Past Surgical History: Yes: None - Alcohol/Substance Use Hx Alcohol Use: No - Smoking History Smoking history: Never smoked Have you smoked in the past 12 months: No Aproximately how many cigarettes per day: 0 If you are a former smoker, when did you quit?: Over 25 years ago - Social History Usual Living Arrangement: With Child ADL: Independent History of Recent Travel: No Home Medications - Allergies Allergies/Adverse Reactions: Allergies Allergy/AdvReac Type Severity Reaction Status Date / Time No Known Allergies Allergy Verified 04/28/20 01:41 - Home Medications Home Medications: Ambulatory Orders Dofetilide [Tikosyn (RESTRICTED TO CARDIOLOGY) -] 250 mcg PO BID 10/30/12 Diltiazem Cd [Cardizem Cd -] 240 mg PO DAILY 08/12/14 Calcium Carbonate/Vitamin D3 [Oyster Shell 500-Vit D3 200 Tb] 1 each PO BID 06/09/16 Simvastatin [Zocor -] 40 mg PO HS 06/09/16 Metoprolol Tartrate [Lopressor -] 50 mg PO DAILY tablet 06/12/16 Valsartan [Diovan] 80 mg PO DAILY tablet 06/12/16 Apixaban [Eliquis -] 5 mg PO BID 09/07/19 Vital Signs: Vital Signs Temperature 97.2 F L 04/28/20 09:07 Pulse Rate 57 L 04/28/20 11:53 Respiratory Rate 17 04/28/20 13:31 Blood Pressure 171/69 H 04/28/20 11:53 O2 Sat by Pulse Oximetry (%) 98 04/28/20 13:31 - Other Data Labs, Other Data: CBC, BMP 04/28/20 02:35 04/28/20 11:40 INR, PTT INR 1.62 (0.83-1.09) H 04/28/20 02:35 Troponin, BNP 04/28/20 02:35 Troponin I < 0.02 Troponin, BNP 04/28/20 02:35 Troponin I < 0.02 Assessment/Plan AF; now with slow VR DM HTN HLD diastolic CHF anxiety stomach ache; 30 lb weight loss in the past 3 months Rec: Hold diltiazem cd Change metoprolol tartrate 25 mg bid to succinate 25 mg daily. Continue dofetilide, and give today's doses. Continue apixaban for anticoagulation. From a cardiac perspective, pt may be followed as outpt. She is wearing an event recorder, and is to see Dr. Odell (EP) next week. F/u with PMD and GI regarding weight loss. F/u with junior staff accountant.
[2020-04-28 15:12] VITALS: BP 156/79; PULSE 59; TEMP 97.9
[2020-04-28] MEDS ORDERED: ATORVASTATIN CA 40 MG TABLET (FP) PO SCH (22:00)
== END 2020-04-28 15:34 | disposition home or self-care (01) | DRG 309 ==
LOC: JER 01:40 → JERBED 05:55
PROVIDERS: ADMIT Family Medicine; ATTEND Family Medicine
DX: I48.91 Unspecified atrial fibrillation (principal); I50.30 Unspecified diastolic (congestive) heart failure; R63.4 Abnormal weight loss; I11.0 Hypertensive heart disease with heart failure; E78.5 Hyperlipidemia, unspecified; E11.9 Type 2 diabetes mellitus without complications; F41.9 Anxiety disorder, unspecified
CPT/HCPCS: 36415; 71045-TC-FY; 74177-TC; 80048; 80053; 82550; 83605; 83690; 84484; 85025; 85610; 85730; 93005; 93010; 99285-25; U0003

== ENCOUNTER 2020-09-21 01:27 | Inpatient (IN) | payer OTHER ==
[2020-09-21 01:49] VITALS: TEMP 98.1; BMI 25.1
[2020-09-21 02:42] LABS: BASO % 0.6 % (0-2.0); HEMATOCRIT 34.2 % (32.4-45.2); HEMOGLOBIN 11.5 GM/dL (10.7-15.3); LYMPH % 35.4 % (8-40); MCH 31.2 pg (25.7-33.7); MCHC 33.5 g/dl (32.0-36.0); MEAN CELL VOLUME 93.1 fl (80-96); MEAN PLT VOLUME 10.3 fl (7.5-11.1); MONO % 7.4 % (3.8-10.2); NEUT % 56.6 % (42.8-82.8); PLATELET COUNT 187 K/MM3 (134-434); RBC 3.67 M/mm3 (3.60-5.2); RDW 14.5 % (11.6-15.6); WHITE BLOOD COUNT 4.8 K/mm3 (4.0-10.0)
[2020-09-21 03:10] LABS: CHLORIDE 110 mmol/L (98-107); POTASSIUM 3.5 mmol/L (3.5-5.1); SODIUM 143 mmol/L (136-145)
[2020-09-21 03:11] LABS: CALCIUM 8.9 mg/dL (8.5-10.1)
[2020-09-21 03:12] LABS: ALBUMIN 3.1 g/dl (3.4-5.0); ANION GAP 8 MMOL/L (8-16); BLOOD UREA NITROGEN 9.5 mg/dL (7-18); CO2 24 mmol/L (21-32); GLUCOSE,RANDOM 115 mg/dL (74-106); MAGNESIUM 1.9 mg/dL (1.8-2.4)
[2020-09-21 03:15] LABS: CREATININE 0.9 mg/dL (0.55-1.3); SGOT/AST 15 U/L (15-37); SGPT/ALT 15 U/L (13-61)
[2020-09-21 03:17] LABS: BILIRUBIN,TOTAL 0.4 mg/dL (0.2-1); TOT PROT 6.4 g/dl (6.4-8.2)
[2020-09-21 03:18] LABS: ALK PHOS 76 U/L (45-117)
[2020-09-21 08:34] LABS: EPI CELLS >36 /uL (0-25.1); HYALINE CASTS 2 /uL (0-3.1); URINE APPEARANCE CLEAR; URINE BACTERIA 1399 /uL (0-1359); URINE BILIRUBIN NEGATIVE (NEGATIVE); URINE COLOR YELLOW; URINE GLUCOSE (UA) NEGATIVE (NEGATIVE); URINE KETONE NEGATIVE (NEGATIVE); URINE LEUK ESTERASE TRACE (NEGATIVE); URINE NITRITE NEGATIVE (NEGATIVE); URINE PROTEIN NEGATIVE (NEGATIVE); URINE RBC 9 /uL (0-23.9); URINE WBC 19 /uL (0-25.8)
[2020-09-21] MEDS ORDERED: ACETAMINOPHEN 325 MG TABLET (FP) PO PRN (12:08)
[2020-09-21] MEDS ORDERED: VALSARTAN 80 MG TABLET PO SCH (12:15)
[2020-09-21] MEDS ORDERED: APIXABAN 5 MG TABLET PO SCH (12:15)
[2020-09-21] MEDS ORDERED: PANTOPRAZOLE 40 MG TABLET PO SCH (12:15)
[2020-09-21 12:21] VITALS: BP 112/67; PULSE 57
[2020-09-21] MEDS ORDERED: APIXABAN 5 MG TABLET ONE (12:39)
[2020-09-21] MEDS ORDERED: PANTOPRAZOLE 40 MG TABLET ONE (12:39)
[2020-09-21] MEDS ORDERED: VALSARTAN 80 MG TABLET ONE (12:40)
[2020-09-21] MEDS ORDERED: CALCIUM 500MG/VIT-D 200 UNITS COMBO TABLET (FP) PO SCH (22:00)
== END 2020-09-21 13:32 | disposition home or self-care (01) | DRG 309 ==
LOC: JER 01:27 → JERBED 04:29
PROVIDERS: ADMIT Internal Medicine; ATTEND Family Medicine
DX: R00.1 Bradycardia, unspecified (principal); I50.32 Chronic diastolic (congestive) heart failure; T44.7X5A Adverse effect of beta-adrenoreceptor antagonists, initial encounter; R00.2 Palpitations; I48.21 Permanent atrial fibrillation; E78.00 Pure hypercholesterolemia, unspecified; E11.9 Type 2 diabetes mellitus without complications; I11.0 Hypertensive heart disease with heart failure; E78.5 Hyperlipidemia, unspecified; G47.30 Sleep apnea, unspecified; F41.9 Anxiety disorder, unspecified; E05.90 Thyrotoxicosis, unspecified without thyrotoxic crisis or storm; Z86.79 Personal history of other diseases of the circulatory system
CPT/HCPCS: 36415; 71045-TC-FY; 80053; 81003; 82550; 83735; 84443; 84484; 85025; 87086; 93005; 93010; 99285-25; C9803; U0003

== ENCOUNTER 2020-09-22 17:46 | Inpatient (IN) | payer OTHER ==
[2020-09-22 18:11] VITALS: BMI 27.2
[2020-09-22] MEDS ORDERED: METOPROLOL TARTRATE 5 MG/5 ML VIAL IVPUSH ONE ×3 (18:30→21:39)
[2020-09-22] MEDS ORDERED: METOPROLOL TARTRATE 25 MG TABLET (FP) PO ONE (18:30)
[2020-09-22] MEDS ORDERED: METOPROLOL TARTRATE 25 MG TABLET (FP) ONE (18:32)
[2020-09-22] MEDS ORDERED: METOPROLOL TARTRATE 5 MG/5 ML VIAL ONE ×2 (18:32→20:36)
[2020-09-22 18:59] LABS: BASO % 0.4 % (0-2.0); HEMATOCRIT 36.7 % (32.4-45.2); LYMPH % 45.9 % (8-40); MCH 30.8 pg (25.7-33.7); MCHC 32.8 g/dl (32.0-36.0); MEAN CELL VOLUME 94.1 fl (80-96); MEAN PLT VOLUME 10.1 fl (7.5-11.1); MONO % 9.6 % (3.8-10.2); NEUT % 44.1 % (42.8-82.8); PLATELET COUNT 187 K/MM3 (134-434); RDW 14.9 % (11.6-15.6); WHITE BLOOD COUNT 5.7 K/mm3 (4.0-10.0)
[2020-09-22 19:07] LABS: INR 1.58 (0.83-1.09); PROTHROMBIN TIME (PATIENT) 18.9 SEC (9.7-13.0)
[2020-09-22 19:10] LABS: ACTIVATED PTT 50.7 SECONDS (25.2-36.5)
[2020-09-22] MEDS ORDERED: LACTATED RINGERS SOLUTION 1000 ML INFUS.BAG IV ONE (19:13)
[2020-09-22 19:20] LABS: CHLORIDE 110 mmol/L (98-107); POTASSIUM 4.5 mmol/L (3.5-5.1); SODIUM 141 mmol/L (136-145)
[2020-09-22 19:23] LABS: CALCIUM 8.5 mg/dL (8.5-10.1)
[2020-09-22 19:24] LABS: ALBUMIN 3.2 g/dl (3.4-5.0); ANION GAP 6 MMOL/L (8-16); BLOOD UREA NITROGEN 12.9 mg/dL (7-18); CO2 25 mmol/L (21-32); GLUCOSE,RANDOM 99 mg/dL (74-106)
[2020-09-22 19:27] LABS: SGOT/AST 35 U/L (15-37); SGPT/ALT 19 U/L (13-61)
[2020-09-22 19:28] LABS: BILIRUBIN,TOTAL 0.8 mg/dL (0.2-1); TOT PROT 7.2 g/dl (6.4-8.2)
[2020-09-22 19:30] LABS: ALK PHOS 77 U/L (45-117)
[2020-09-22 19:32] LABS: N-TERMINAL BNP 1445.4 pg/ml (5-450)
[2020-09-23] MEDS ORDERED: ATORVASTATIN CA 20 MG TABLET (FP) ONE (00:35)
[2020-09-23] MEDS ORDERED: APIXABAN 5 MG TABLET ONE (00:36)
[2020-09-23] MEDS: APIXABAN 5 MG TABLET PO SCH ×3 (00:38→21:19)
[2020-09-23] MEDS: ATORVASTATIN CA 20 MG TABLET (FP) PO SCH ×2 (00:38→21:19)
[2020-09-23] MEDS ORDERED: METOPROLOL TARTRATE 5 MG/5 ML VIAL IVPUSH ONE (07:27)
[2020-09-23] MEDS: VALSARTAN 80 MG TABLET PO SCH (09:11)
[2020-09-23 10:30] LABS: BASO % 0.4 % (0-2.0); HEMATOCRIT 36.5 % (32.4-45.2); HEMOGLOBIN 12.1 GM/dL (10.7-15.3); LYMPH % 38.8 % (8-40); MCHC 33.2 g/dl (32.0-36.0); MEAN CELL VOLUME 93.4 fl (80-96); MEAN PLT VOLUME 9.9 fl (7.5-11.1); MONO % 8.1 % (3.8-10.2); NEUT % 52.7 % (42.8-82.8); PLATELET COUNT 167 K/MM3 (134-434); RBC 3.91 M/mm3 (3.60-5.2); RDW 14.4 % (11.6-15.6); WHITE BLOOD COUNT 3.8 K/mm3 (4.0-10.0)
[2020-09-23 10:57] LABS: ALBUMIN 2.9 g/dl (3.4-5.0); BILIRUBIN,TOTAL 0.7 mg/dL (0.2-1); BLOOD UREA NITROGEN 13.1 mg/dL (7-18); CALCIUM 8.9 mg/dL (8.5-10.1); POTASSIUM 3.2 mmol/L (3.5-5.1); TOT PROT 6.4 g/dl (6.4-8.2)
[2020-09-23] MEDS ORDERED: ACETAMINOPHEN 325 MG TABLET (FP) PO PRN (12:45)
[2020-09-23] MEDS: POLYETHYLENE GLYCOL 3350 119 GM BTL PO SCH (15:05)
[2020-09-23] MEDS: metoPROLOL SUCCINATE 25 MG TAB.SR.24H (FP) PO SCH (15:05)
[2020-09-23] MEDS: CALCIUM 500MG/VIT-D 200 UNITS COMBO TABLET (FP) PO SCH ×2 (15:05→21:19)
[2020-09-23] MEDS: PANTOPRAZOLE 40 MG TABLET PO SCH (15:05)
[2020-09-23] MEDS: DOFETILIDE 0.25 MG CAPSULE PO SCH ×2 (16:25→21:20)
[2020-09-23] MEDS ORDERED: POTASSIUM CHLORIDE TABS 20 MEQ TABLET.ER (FP) PO ONE (16:31)
[2020-09-24] MEDS ORDERED: LORazepam 0.5 MG TABLET PO ONE (04:51)
[2020-09-24] MEDS: CALCIUM 500MG/VIT-D 200 UNITS COMBO TABLET (FP) PO SCH ×2 (09:44→22:11)
[2020-09-24] MEDS: APIXABAN 5 MG TABLET PO SCH ×2 (09:44→22:11)
[2020-09-24] MEDS: POLYETHYLENE GLYCOL 3350 119 GM BTL PO SCH (09:44)
[2020-09-24] MEDS: PANTOPRAZOLE 40 MG TABLET PO SCH (09:44)
[2020-09-24] MEDS: VALSARTAN 80 MG TABLET PO SCH (09:44)
[2020-09-24] MEDS: DOFETILIDE 0.25 MG CAPSULE PO SCH ×2 (09:45→22:18)
[2020-09-24] MEDS: metoPROLOL SUCCINATE 25 MG TAB.SR.24H (FP) PO SCH ×2 (09:45→09:46)
[2020-09-24 10:09] LABS: POTASSIUM 3.7 mmol/L (3.5-5.1)
[2020-09-24 11:13] LABS: BLOOD UREA NITROGEN 11.3 mg/dL (7-18)
[2020-09-24 11:15] LABS: CREATININE 0.8 mg/dL (0.55-1.3)
[2020-09-24 11:16] LABS: BILIRUBIN,TOTAL 0.5 mg/dL (0.2-1)
[2020-09-24] MEDS: ESCITALOPRAM OXALATE 10 MG TABLET PO SCH (16:03)
[2020-09-24] MEDS: ATORVASTATIN CA 20 MG TABLET (FP) PO SCH (22:11)
[2020-09-25] MEDS: PANTOPRAZOLE 40 MG TABLET PO SCH (09:20)
[2020-09-25] MEDS: ESCITALOPRAM OXALATE 10 MG TABLET PO SCH (09:20)
[2020-09-25] MEDS: CALCIUM 500MG/VIT-D 200 UNITS COMBO TABLET (FP) PO SCH (09:20)
[2020-09-25] MEDS: APIXABAN 5 MG TABLET PO SCH (09:20)
[2020-09-25] MEDS: metoPROLOL SUCCINATE 25 MG TAB.SR.24H (FP) PO SCH (09:21)
[2020-09-25] MEDS: POLYETHYLENE GLYCOL 3350 119 GM BTL PO SCH (09:21)
[2020-09-25] MEDS: VALSARTAN 80 MG TABLET PO SCH (09:21)
[2020-09-25] MEDS: DOFETILIDE 0.25 MG CAPSULE PO SCH (09:43)
[2020-09-25 11:05] VITALS: BP 128/71; PULSE 54; TEMP 98.2
== END 2020-09-25 13:48 | disposition home or self-care (01) | DRG 309 ==
LOC: JER 17:46 → JERBED 21:26 → J4W 09-23 05:49
PROVIDERS: ADMIT Hospitalist; ATTEND Family Medicine
DX: I48.91 Unspecified atrial fibrillation (principal); I50.32 Chronic diastolic (congestive) heart failure; E78.5 Hyperlipidemia, unspecified; Z79.01 Long term (current) use of anticoagulants; I11.0 Hypertensive heart disease with heart failure; F41.9 Anxiety disorder, unspecified; E87.6 Hypokalemia
CPT/HCPCS: 36415; 71045-TC-FY; 76700-TC; 80053; 82550; 83735; 83880; 84484; 85025; 85610; 85730; 93005; 93010; 99291; C9803; U0003

== ENCOUNTER 2020-10-06 06:27 | Emergency (ER) | payer OTHER ==
[2020-10-06 07:19] VITALS: BMI 27.4
[2020-10-06] MEDS ORDERED: FAMOTIDINE 20 MG/50 ML IVPB 20 MG/50 ML MG IVPB ONE ×2 (07:56→08:26)
[2020-10-06] MEDS ORDERED: SODIUM CHLORIDE 0.9% 1000 ML INFUS.BAG IV ONE (07:56)
[2020-10-06] MEDS ORDERED: ACETAMINOPHEN 1000 MG/100 ML VIAL (NON FORMULARY) IVPB ONE (07:56)
[2020-10-06] MEDS ORDERED: ACETAMINOPHEN INJECTION 100 ML IVPB ONE (08:26)
[2020-10-06 09:08] LABS: BASO % 0.8 % (0-2.0); EOS % 0.1 % (0-4.5); HEMATOCRIT 35.2 % (32.4-45.2); HEMOGLOBIN 11.7 GM/dL (10.7-15.3); LYMPH % 37.7 % (8-40); MCH 31.3 pg (25.7-33.7); MCHC 33.2 g/dl (32.0-36.0); MEAN CELL VOLUME 94.3 fl (80-96); MEAN PLT VOLUME 9.8 fl (7.5-11.1); MONO % 7.2 % (3.8-10.2); NEUT % 54.2 % (42.8-82.8); PLATELET COUNT 161 K/MM3 (134-434); RBC 3.73 M/mm3 (3.60-5.2); RDW 14.6 % (11.6-15.6); WHITE BLOOD COUNT 4.3 K/mm3 (4.0-10.0)
[2020-10-06 09:10] LABS: URINE APPEARANCE CLEAR; URINE BILIRUBIN NEGATIVE (NEGATIVE); URINE COLOR YELLOW; URINE GLUCOSE (UA) NEGATIVE (NEGATIVE); URINE KETONE NEGATIVE (NEGATIVE); URINE LEUK ESTERASE NEGATIVE (NEGATIVE); URINE NITRITE NEGATIVE (NEGATIVE); URINE PROTEIN NEGATIVE (NEGATIVE); URINE UROBILINOGEN 0.2 mg/dL (0.2-1.0)
[2020-10-06 09:17] LABS: INR 1.63 (0.83-1.09); PROTHROMBIN TIME (PATIENT) 19.4 SEC (9.7-13.0)
[2020-10-06 09:19] LABS: ACTIVATED PTT 39.9 SECONDS (25.2-36.5)
[2020-10-06 09:32] LABS: CHLORIDE 111 mmol/L (98-107); SODIUM 144 mmol/L (136-145)
[2020-10-06 09:38] LABS: ANION GAP 7 MMOL/L (8-16); BLOOD UREA NITROGEN 6.6 mg/dL (7-18); CALCIUM 8.6 mg/dL (8.5-10.1); CO2 26 mmol/L (21-32); GLUCOSE,RANDOM 119 mg/dL (74-106); LIPASE 32 U/L (73-393)
[2020-10-06 09:40] LABS: CREATININE 0.9 mg/dL (0.55-1.3); SGOT/AST 27 U/L (15-37); SGPT/ALT 15 U/L (13-61)
[2020-10-06 09:42] LABS: BILIRUBIN,TOTAL 0.6 mg/dL (0.2-1); TOT PROT 6.4 g/dl (6.4-8.2)
[2020-10-06 09:44] LABS: ALK PHOS 77 U/L (45-117)
[2020-10-06 12:55] VITALS: BP 155/74; PULSE 60; TEMP 98
== END 2020-10-06 12:53 | disposition home or self-care (01) ==
LOC: JER 06:27
PROC: 3E033GC Introduction of Other Therapeutic Substance into Peripheral Vein, Percutaneous Approach (ICD-10-PCS; principal; 2020-10-06)
PROC: 3E033GC Introduction of Other Therapeutic Substance into Peripheral Vein, Percutaneous Approach (ICD-10-PCS; 2020-10-06)
DX: R10.84 Generalized abdominal pain (principal)
CPT/HCPCS: 36415; 74177-TC; 80053; 81003; 82550; 83605; 83690; 84484; 85025; 85610; 85730; 87086; 93005; 93010; 99285-25; J0131; Q9967

== ENCOUNTER 2020-10-16 09:53 | Emergency (ER) | payer OTHER ==
[2020-10-16 10:39] VITALS: TEMP 98.2; BMI 25.8
[2020-10-16 12:01] LABS: BASO % 0.3 % (0-2.0); LYMPH % 39.4 % (8-40); MCHC 33.2 g/dl (32.0-36.0); MEAN CELL VOLUME 93.3 fl (80-96); MEAN PLT VOLUME 9.7 fl (7.5-11.1); MONO % 8.1 % (3.8-10.2); NEUT % 52.2 % (42.8-82.8); PLATELET COUNT 181 K/MM3 (134-434); RBC 3.86 M/mm3 (3.60-5.2); RDW 14.6 % (11.6-15.6); WHITE BLOOD COUNT 3.7 K/mm3 (4.0-10.0)
[2020-10-16 12:22] LABS: CHLORIDE 110 mmol/L (98-107); POTASSIUM 3.5 mmol/L (3.5-5.1); SODIUM 142 mmol/L (136-145)
[2020-10-16 12:25] LABS: ALBUMIN 3.3 g/dl (3.4-5.0); ANION GAP 5 MMOL/L (8-16); BLOOD UREA NITROGEN 7.8 mg/dL (7-18); CO2 27 mmol/L (21-32); GLUCOSE,RANDOM 113 mg/dL (74-106)
[2020-10-16 12:28] LABS: CREATININE 0.9 mg/dL (0.55-1.3); SGOT/AST 15 U/L (15-37); SGPT/ALT 13 U/L (13-61)
[2020-10-16 12:29] LABS: BILIRUBIN,TOTAL 0.6 mg/dL (0.2-1); TOT PROT 6.9 g/dl (6.4-8.2)
[2020-10-16 12:31] LABS: ALK PHOS 81 U/L (45-117)
[2020-10-16] MEDS ORDERED: FAMOTIDINE 20 MG TABLET PO ONE (15:36)
[2020-10-16] MEDS ORDERED: MAG HYDROX/AL HYDROX/SIMETH 30 ML UNIT-DOSE CUP ONE (15:37)
[2020-10-16] MEDS ORDERED: FAMOTIDINE 20 MG TABLET ONE (15:37)
[2020-10-16] MEDS ORDERED: MAG HYDROX/AL HYDROX/SIMETH -MYLANTA- ORAL SUSPENSION PO ONE (15:37)
[2020-10-16 15:41] VITALS: BP 142/56; PULSE 62
== END 2020-10-16 15:50 | disposition home or self-care (01) ==
LOC: JER 09:53
DX: R00.1 Bradycardia, unspecified (principal); R10.84 Generalized abdominal pain
CPT/HCPCS: 36415; 80053; 83735; 84100; 84484; 85025; 93005; 93010; 99285-25

== ENCOUNTER 2021-05-16 11:38 | Emergency (ER) | payer OTHER ==
[2021-05-16 12:08] VITALS: BP 161/73; PULSE 55; TEMP 98.1; BMI 25.8
[2021-05-16] MEDS ORDERED: ACETAMINOPHEN 325 MG TABLET (FP) PO ONE (12:35)
[2021-05-16] MEDS ORDERED: ACETAMINOPHEN 325 MG TABLET (FP) ONE (12:59)
[2021-05-16 13:46] LABS: BASO % 1.1 % (0-2.0); HEMATOCRIT 35.8 % (32.4-45.2); LYMPH % 49.1 % (8-40); MCHC 33.5 g/dl (32.0-36.0); MEAN CELL VOLUME 92.5 fl (80-96); MEAN PLT VOLUME 9.6 fl (7.5-11.1); MONO % 6.8 % (3.8-10.2); PLATELET COUNT 163 10^3/uL (134-434); RBC 3.87 M/mm3 (3.60-5.2); RDW 14.4 % (11.6-15.6)
[2021-05-16 13:56] LABS: CHLORIDE 110 mmol/L (98-107); SODIUM 141 mmol/L (136-145)
[2021-05-16 13:57] LABS: ALBUMIN 3.5 g/dl (3.4-5.0); ANION GAP 4 MMOL/L (8-16); CALCIUM 9.1 mg/dL (8.5-10.1); CO2 27 mmol/L (21-32)
[2021-05-16 13:59] LABS: GLUCOSE,RANDOM 96 mg/dL (74-106)
[2021-05-16 14:01] LABS: SGOT/AST 12 U/L (15-37); SGPT/ALT 12 U/L (13-61)
[2021-05-16 14:03] LABS: BILIRUBIN,TOTAL 0.6 mg/dL (0.2-1); TOT PROT 7.5 g/dl (6.4-8.2)
[2021-05-16 14:04] LABS: ALK PHOS 96 U/L (45-117)
[2021-05-16 14:29] LABS: EPI CELLS 6 /uL (0-25.1); HYALINE CASTS 0 /uL (0-3.1); URINE APPEARANCE CLEAR; URINE BACTERIA 164 /uL (0-1359); URINE BILIRUBIN NEGATIVE (NEGATIVE); URINE COLOR YELLOW; URINE GLUCOSE (UA) NEGATIVE (NEGATIVE); URINE KETONE NEGATIVE (NEGATIVE); URINE LEUK ESTERASE TRACE (NEGATIVE); URINE NITRITE NEGATIVE (NEGATIVE); URINE PROTEIN NEGATIVE (NEGATIVE); URINE RBC 2 /uL (0-23.9); URINE UROBILINOGEN 0.2 mg/dL (0.2-1.0); URINE WBC 7 /uL (0-25.8)
== END 2021-05-16 16:33 | disposition home or self-care (01) ==
LOC: JER 11:38
DX: R51.9 Headache, unspecified (principal); Z11.52 Encounter for screening for COVID-19
CPT/HCPCS: 36415; 70450-TC; 72125-TC; 80053; 81003; 84484; 85025; 86140; 87086; 93005; 93010; 99285-25; C9803; U0003; U0005

== ENCOUNTER 2021-09-25 07:29 | Emergency (ER) | payer OTHER ==
[2021-09-25 07:55] VITALS: TEMP 98.5; BMI 27.4
[2021-09-25] MEDS ORDERED: SODIUM CHLORIDE 0.9% 500 ML INFUS.BAG IV ONE (08:26)
[2021-09-25] MEDS ORDERED: MAG HYDROX/AL HYDROX/SIMETH 30 ML UNIT-DOSE CUP PO ONE (08:28)
[2021-09-25] MEDS ORDERED: FAMOTIDINE 20 MG/50 ML IVPB 20 MG/50 ML MG IVPB ONE ×2 (08:28→09:51)
[2021-09-25] MEDS ORDERED: ACETAMINOPHEN 1000 MG/100 ML BAG IVPB ONE (08:36)
[2021-09-25] MEDS ORDERED: ACETAMINOPHEN INJECTION 100 ML IVPB ONE (09:02)
[2021-09-25] MEDS ORDERED: MAG HYDROX/AL HYDROX/SIMETH 30 ML UNIT-DOSE CUP ONE (09:51)
[2021-09-25 09:56] LABS: BASO % 0.6 % (0-2.0); HEMATOCRIT 33.5 % (32.4-45.2); HEMOGLOBIN 11.1 GM/dL (10.7-15.3); LYMPH % 39.1 % (8-40); MCH 29.8 pg (25.7-33.7); MCHC 33.2 g/dl (32.0-36.0); MEAN CELL VOLUME 89.8 fl (80-96); MEAN PLT VOLUME 9.3 fl (7.5-11.1); MONO % 9.2 % (3.8-10.2); NEUT % 51.1 % (42.8-82.8); PLATELET COUNT 249 10^3/uL (134-434); RBC 3.72 M/mm3 (3.60-5.2); RDW 14.8 % (11.6-15.6); WHITE BLOOD COUNT 3.4 K/mm3 (4.0-10.0)
[2021-09-25 10:18] LABS: CHLORIDE 109 mmol/L (98-107); SODIUM 139 mmol/L (136-145)
[2021-09-25 10:19] LABS: MAGNESIUM 1.6 mg/dL (1.8-2.4)
[2021-09-25 10:20] LABS: CALCIUM 8.6 mg/dL (8.5-10.1)
[2021-09-25 10:21] LABS: ALBUMIN 2.5 g/dl (3.4-5.0); BLOOD UREA NITROGEN 8.4 mg/dL (7-18); CO2 27 mmol/L (21-32); GLUCOSE,RANDOM 112 mg/dL (74-106)
[2021-09-25 10:23] LABS: PHOSPHOROUS 3.2 mg/dL (2.5-4.9)
[2021-09-25 10:24] LABS: CREATININE 0.9 mg/dL (0.55-1.3); SGOT/AST 71 U/L (15-37)
[2021-09-25 10:25] LABS: TOT PROT 6.7 g/dl (6.4-8.2)
[2021-09-25 10:26] LABS: BILIRUBIN,TOTAL 0.5 mg/dL (0.2-1)
[2021-09-25 10:27] LABS: ALK PHOS 67 U/L (45-117)
[2021-09-25 10:32] LABS: PLATELET ESTIMATE NORMAL
[2021-09-25 10:37] LABS: ANION GAP 3 MMOL/L (8-16); SGPT/ALT 18 U/L (13-61)
[2021-09-25 13:08] LABS: BLOOD UREA NITROGEN 7.3 mg/dL (7-18); CALCIUM 8.3 mg/dL (8.5-10.1)
[2021-09-25 13:12] LABS: CREATININE 0.9 mg/dL (0.55-1.3)
[2021-09-25 13:20] LABS: EPI CELLS 32 /uL (0-25.1); HYALINE CASTS 0 /uL (0-3.1); URINE APPEARANCE CLEAR; URINE BACTERIA 1151 /uL (0-1359); URINE BILIRUBIN NEGATIVE (NEGATIVE); URINE COLOR YELLOW; URINE GLUCOSE (UA) NEGATIVE (NEGATIVE); URINE KETONE NEGATIVE (NEGATIVE); URINE LEUK ESTERASE 1+ (NEGATIVE); URINE NITRITE NEGATIVE (NEGATIVE); URINE PROTEIN NEGATIVE (NEGATIVE); URINE RBC 10 /uL (0-23.9); URINE UROBILINOGEN 0.2 mg/dL (0.2-1.0); URINE WBC 50 /uL (0-25.8)
[2021-09-25] MEDS ORDERED: CEFTRIAXONE 1,000 MG in DEXTROSE 5%-WATER - 50 ML IVPB ONE (13:27)
[2021-09-25 14:41] VITALS: BP 140/67; PULSE 74
== END 2021-09-25 15:30 | disposition home or self-care (01) ==
LOC: JER 07:29
PROC: 3E0333Z Introduction of Anti-inflammatory into Peripheral Vein, Percutaneous Approach (ICD-10-PCS; principal; 2021-09-25)
PROC: 3E03329 Introduction of Other Anti-infective into Peripheral Vein, Percutaneous Approach (ICD-10-PCS; 2021-09-25)
PROC: 3E033GC Introduction of Other Therapeutic Substance into Peripheral Vein, Percutaneous Approach (ICD-10-PCS; 2021-09-25)
DX: N39.0 Urinary tract infection, site not specified (principal)
CPT/HCPCS: 36415; 70450-TC; 71045-TC-FY; 80048; 80053; 81003; 82550; 83735; 84100; 84443; 84484; 85025; 87086; 87804; 93005; 93010; 99285-25; C9803; J0131; U0003; U0005

== ENCOUNTER 2022-10-07 01:20 | Observation (INO) | payer OTHER ==
[2022-10-07] MEDS ORDERED: FAMOTIDINE 20 MG/50 ML IVPB 20 MG/50 ML MG IVPB ONE ×2 (01:51→02:17)
[2022-10-07] MEDS ORDERED: MAG HYDROX/AL HYDROX/SIMETH 30 ML UNIT-DOSE CUP PO ONE (01:51)
[2022-10-07] MEDS ORDERED: SUCRALFATE 1 GM/10 ML UNIT DOSE CUPS PO ONE (02:00)
[2022-10-07] MEDS ORDERED: MAG HYDROX/AL HYDROX/SIMETH 30 ML UNIT-DOSE CUP ONE (02:16)
[2022-10-07] MEDS ORDERED: SUCRALFATE 1 GM TABLET (FP) PO ONE (02:18)
[2022-10-07] MEDS ORDERED: SUCRALFATE 1 GM TABLET (FP) ONE (02:18)
[2022-10-07 02:28] LABS: BASO % 0.5 % (0-2.0); EOS % 0.2 % (0-4.5); HEMATOCRIT 36.6 % (32.4-45.2); HEMOGLOBIN 12.4 GM/dL (10.7-15.3); LYMPH % 43.5 % (8-40); MCH 31.1 pg (25.7-33.7); MCHC 33.7 g/dl (32.0-36.0); MEAN CELL VOLUME 92.2 fl (80-96); MEAN PLT VOLUME 9.2 fl (7.5-11.1); NEUT % 46.8 % (42.8-82.8); PLATELET COUNT 164 10^3/uL (134-434); RBC 3.97 M/mm3 (3.60-5.2); RDW 14.6 % (11.6-15.6); WHITE BLOOD COUNT 3.9 K/mm3 (4.0-10.0)
[2022-10-07 02:48] LABS: CALCIUM 9.5 mg/dL (8.5-10.1)
[2022-10-07 02:49] LABS: ALBUMIN 3.2 g/dl (3.4-5.0); BLOOD UREA NITROGEN 13.9 mg/dL (7-18)
[2022-10-07 02:52] LABS: CREATININE 0.9 mg/dL (0.55-1.3)
[2022-10-07 02:53] LABS: BILIRUBIN,TOTAL 0.7 mg/dL (0.2-1); TOT PROT 7.1 g/dl (6.4-8.2)
[2022-10-07] MEDS ORDERED: FLUCONAZOLE 50 MG TABLET PO ONE (03:23)
[2022-10-07] MEDS ORDERED: FLUCONAZOLE 150 MG TABLET PO ONE (03:48)
[2022-10-07] MEDS ORDERED: DICYCLOMINE HCL 20 MG TABLET PO ONE (03:51)
[2022-10-07] MEDS ORDERED: DICYCLOMINE HCL 10 MG CAPSULE ONE (03:55)
[2022-10-07] MEDS ORDERED: ACETAMINOPHEN 325 MG TABLET (FP) PO PRN (06:12)
[2022-10-07] MEDS ORDERED: NYSTATIN 500,000 UNITS TABLET PO SCH (06:30)
[2022-10-07] MEDS: NYSTATIN 500,000 UNITS/5 ML SUSPENSION PO SCH ×3 (08:45→22:00)
[2022-10-07] MEDS ORDERED: PANTOPRAZOLE 40 MG TABLET PO ONE (08:58)
[2022-10-07] MEDS ORDERED: ATORVASTATIN CA 10 MG TABLET (FP) ONE (08:59)
[2022-10-07] MEDS ORDERED: LOSARTAN POTASSIUM 50 MG TABLET ONE (08:59)
[2022-10-07] MEDS ORDERED: APIXABAN 5 MG TABLET ONE (08:59)
[2022-10-07] MEDS ORDERED: metoPROLOL SUCCINATE 25 MG TAB.SR.24H (FP) PO ONE (08:59)
[2022-10-07] MEDS: APIXABAN 5 MG TABLET PO SCH ×2 (09:20→21:59)
[2022-10-07] MEDS ORDERED: LOSARTAN POTASSIUM 50 MG TABLET PO SCH (10:00)
[2022-10-07] MEDS ORDERED: metoPROLOL SUCCINATE 25 MG TAB.SR.24H (FP) PO SCH (10:00)
[2022-10-07] MEDS ORDERED: PANTOPRAZOLE 40 MG TABLET PO SCH (10:00)
[2022-10-07 10:39] VITALS: RESP 20; BMI 26.9
[2022-10-07] MEDS ORDERED: MINERAL OIL/PET HY-PHL TOPICAL OINTMENT 454 GM JAR TP SCH (13:45)
[2022-10-07] MEDS ORDERED: ATORVASTATIN CA 10 MG TABLET (FP) PO SCH (22:00)
[2022-10-08] MEDS: NYSTATIN 500,000 UNITS/5 ML SUSPENSION PO SCH (06:06)
[2022-10-08 06:13] VITALS: BP 133/61; PULSE 52; TEMP 99.7
== END 2022-10-08 09:14 | disposition left against medical advice (07) ==
LOC: JER 01:20 → JERBED 05:42 → J8W 09:24
PROVIDERS: ADMIT Internal Medicine; ATTEND Family Medicine
DX: B37.81 Candidal esophagitis (principal); F41.8 Other specified anxiety disorders; I48.91 Unspecified atrial fibrillation; R11.2 Nausea with vomiting, unspecified; Z63.4 Disappearance and death of family member; I11.0 Hypertensive heart disease with heart failure; R10.9 Unspecified abdominal pain; R00.1 Bradycardia, unspecified; F32.9 Major depressive disorder, single episode, unspecified; R10.13 Epigastric pain; Z20.822 Contact with and (suspected) exposure to COVID-19; R79.1 Abnormal coagulation profile; K21.9 Gastro-esophageal reflux disease without esophagitis
CPT/HCPCS: 0241U-QW; 36415; 71045-TC-FY; 80053; 83690; 84484; 85025; 93005; 93010; 96365; 99285-25; G0378

== ENCOUNTER 2022-12-23 09:46 | Observation (INO) | payer OTHER ==
[2022-12-23 10:00] VITALS: BMI 26.6
[2022-12-23] MEDS ORDERED: FAMOTIDINE 20 MG/50 ML IVPB 20 MG/50 ML MG IVPB ONE ×2 (10:19→10:38)
[2022-12-23] MEDS ORDERED: MAG HYDROX/AL HYDROX/SIMETH 30 ML UNIT-DOSE CUP PO ONE (10:19)
[2022-12-23] MEDS ORDERED: ONDANSETRON 4 MG/2 ML VIAL IVPUSH ONE (10:19)
[2022-12-23] MEDS ORDERED: ACETAMINOPHEN 1000 MG/100 ML BAG IVPB ONE (10:19)
[2022-12-23] MEDS ORDERED: MAG HYDROX/AL HYDROX/SIMETH 30 ML UNIT-DOSE CUP ONE (10:37)
[2022-12-23] MEDS ORDERED: ACETAMINOPHEN INJECTION 100 ML IVPB ONE (10:37)
[2022-12-23] MEDS ORDERED: ONDANSETRON 4 MG/2 ML VIAL ONE (10:38)
[2022-12-23 10:43] LABS: BASO % 0.4 % (0-2.0); HEMATOCRIT 36.4 % (32.4-45.2); HEMOGLOBIN 12.3 GM/dL (10.7-15.3); LYMPH % 27.5 % (8-40); MCH 30.5 pg (25.7-33.7); MEAN CELL VOLUME 89.7 fl (80-96); MEAN PLT VOLUME 8.8 fl (7.5-11.1); MONO % 7.8 % (3.8-10.2); NEUT % 64.3 % (42.8-82.8); PLATELET COUNT 205 10^3/uL (134-434); RBC 4.05 M/mm3 (3.60-5.2); WHITE BLOOD COUNT 5.9 K/mm3 (4.0-10.0)
[2022-12-23 10:52] LABS: INR 1.31 (0.83-1.09); PROTHROMBIN TIME (PATIENT) 15.2 SEC (9.7-13.0)
[2022-12-23 10:55] LABS: ACTIVATED PTT 55.2 SECONDS (25.2-36.5)
[2022-12-23 11:09] LABS: ALBUMIN 3.4 g/dl (3.4-5.0); CALCIUM 10.6 mg/dL (8.5-10.1)
[2022-12-23 11:10] LABS: MAGNESIUM 2.3 mg/dL (1.8-2.4)
[2022-12-23 11:12] LABS: CREATININE 0.8 mg/dL (0.55-1.3)
[2022-12-23 11:14] LABS: BILIRUBIN,TOTAL 0.5 mg/dL (0.2-1); TOT PROT 7.7 g/dl (6.4-8.2)
[2022-12-23 14:38] LABS: EPI CELLS 8 /uL (0-25.1); HYALINE CASTS 0 /uL (0-3.1); PH,URINE 7.5 (5.0-8.0); URINE APPEARANCE CLEAR; URINE BACTERIA 228 /uL (0-1359); URINE BILIRUBIN NEGATIVE (NEGATIVE); URINE COLOR YELLOW; URINE GLUCOSE (UA) NEGATIVE (NEGATIVE); URINE KETONE NEGATIVE (NEGATIVE); URINE LEUK ESTERASE NEGATIVE (NEGATIVE); URINE NITRITE NEGATIVE (NEGATIVE); URINE PROTEIN NEGATIVE (NEGATIVE); URINE RBC 29 /uL (0-23.9); URINE UROBILINOGEN 0.2 mg/dL (0.2-1.0); URINE WBC 5 /uL (0-25.8)
[2022-12-23] MEDS ORDERED: METOPROLOL TARTRATE 50 MG TABLET (FP) PO ONE (16:16)
[2022-12-23] MEDS ORDERED: DOFETILIDE 0.25 MG CAPSULE PO ONE (16:30)
[2022-12-23] MEDS ORDERED: METOPROLOL TARTRATE 50 MG TABLET (FP) ONE (16:49)
[2022-12-23] MEDS ORDERED: ATORVASTATIN CA 40 MG TABLET (FP) PO SCH (22:00)
[2022-12-23] MEDS ORDERED: APIXABAN 5 MG TABLET ONE (23:05)
[2022-12-23] MEDS ORDERED: ATORVASTATIN CA 40 MG TABLET (FP) ONE (23:06)
[2022-12-23] MEDS: APIXABAN 5 MG TABLET PO SCH (23:13)
[2022-12-24 07:13] LABS: BASO % 0.5 % (0-2.0); HEMOGLOBIN 12.6 GM/dL (10.7-15.3); LYMPH % 36.9 % (8-40); MCH 31.2 pg (25.7-33.7); MEAN CELL VOLUME 89.3 fl (80-96); MEAN PLT VOLUME 9.6 fl (7.5-11.1); MONO % 8.1 % (3.8-10.2); NEUT % 54.5 % (42.8-82.8); PLATELET COUNT 215 10^3/uL (134-434); RBC 4.03 M/mm3 (3.60-5.2); WHITE BLOOD COUNT 5.4 K/mm3 (4.0-10.0)
[2022-12-24 08:52] LABS: ALBUMIN 3.1 g/dl (3.4-5.0); BILIRUBIN,TOTAL 0.6 mg/dL (0.2-1); BLOOD UREA NITROGEN 12.8 mg/dL (7-18); CALCIUM 9.1 mg/dL (8.5-10.1); MAGNESIUM 2.3 mg/dL (1.8-2.4); PHOSPHOROUS 4.3 mg/dL (2.5-4.9); TOT PROT 7.2 g/dl (6.4-8.2)
[2022-12-24] MEDS ORDERED: PANTOPRAZOLE 40 MG TABLET PO SCH (10:00)
[2022-12-24] MEDS ORDERED: metoPROLOL SUCCINATE 25 MG TAB.SR.24H (FP) PO SCH (10:00)
[2022-12-24] MEDS ORDERED: POLYETHYLENE GLYCOL (HEALTHYLAX) 3350 17 GM PACKET PO SCH (10:00)
[2022-12-24] MEDS ORDERED: LOSARTAN POTASSIUM 50 MG TABLET PO SCH (10:00)
[2022-12-24] MEDS ORDERED: ESCITALOPRAM OXALATE 10 MG TABLET PO SCH (10:00)
[2022-12-24] MEDS ORDERED: POLYETHYLENE GLYCOL (HEALTHYLAX) 3350 17 GM PACKET ONE (10:08)
[2022-12-24] MEDS ORDERED: APIXABAN 5 MG TABLET ONE (10:08)
[2022-12-24] MEDS ORDERED: LOSARTAN POTASSIUM 50 MG TABLET ONE (10:08)
[2022-12-24] MEDS ORDERED: PANTOPRAZOLE 40 MG TABLET PO ONE (10:08)
[2022-12-24] MEDS ORDERED: metoPROLOL SUCCINATE 25 MG TAB.SR.24H (FP) PO ONE (10:09)
[2022-12-24 10:14] VITALS: TEMP 97.7
[2022-12-24] MEDS: APIXABAN 5 MG TABLET PO SCH (10:18)
[2022-12-24] MEDS ORDERED: SODIUM PHOSPHATE/NA BIPHOS 133 ML ENEMA RC ONE (12:21)
[2022-12-24] MEDS ORDERED: METOCLOPRAMIDE HCL INJECTION 10 MG/2 ML VIAL IVPUSH SCH (14:00)
[2022-12-24] MEDS ORDERED: METOCLOPRAMIDE HCL INJECTION 10 MG/2 ML VIAL ONE (14:35)
[2022-12-24] MEDS ORDERED: DOFETILIDE 0.25 MG CAPSULE PO SCH (14:45)
[2022-12-24 17:53] VITALS: BP 129/67; PULSE 70; RESP 16
== END 2022-12-24 18:00 | disposition left against medical advice (07) ==
LOC: JER 09:46 → OBSVTOIN 14:49 → UNDOADMOB 14:49 → INTOOBSV 14:49 → JERBED 14:49
PROVIDERS: ADMIT Internal Medicine; ATTEND Internal Medicine
PROC: 3E033GC Introduction of Other Therapeutic Substance into Peripheral Vein, Percutaneous Approach (ICD-10-PCS; principal; 2022-12-24)
PROC: 3E033NZ Introduction of Analgesics, Hypnotics, Sedatives into Peripheral Vein, Percutaneous Approach (ICD-10-PCS; 2022-12-24)
DX: R07.9 Chest pain, unspecified (principal); R10.84 Generalized abdominal pain; R11.2 Nausea with vomiting, unspecified; I48.91 Unspecified atrial fibrillation; K21.9 Gastro-esophageal reflux disease without esophagitis; I11.0 Hypertensive heart disease with heart failure; I50.9 Heart failure, unspecified; E78.5 Hyperlipidemia, unspecified; Z87.891 Personal history of nicotine dependence
CPT/HCPCS: 36415; 71045-TC-FY; 71275-TC; 74174-TC; 80053; 80061; 81003; 82550; 83036; 83605; 83690; 83735; 84100; 84443; 84484; 85025; 85610; 85730; 86850; 86900; 86901; 87086; 93005; 93010; 93306-TC; 96365; 96375; 99285-25; C9803-CS; G0378; Q9967; U0003; U0005

== ENCOUNTER 2023-05-15 15:53 | Observation (INO) | payer OTHER ==
[2023-05-15] MEDS ORDERED: ACETAMINOPHEN 1000 MG/100 ML BAG IVPB ONE (18:00)
[2023-05-15] MEDS ORDERED: LIDOCAINE 5% TOPICAL PATCH TP ONE (18:00)
[2023-05-15] MEDS ORDERED: ACETAMINOPHEN INJECTION 100 ML IVPB ONE (18:14)
[2023-05-15] MEDS ORDERED: LIDOCAINE 5% TOPICAL PATCH ONE (18:15)
[2023-05-15 18:42] LABS: BASO % 0.2 % (0-2.0); HEMATOCRIT 37.9 % (32.4-45.2); HEMOGLOBIN 12.6 GM/dL (10.7-15.3); LYMPH % 41.9 % (8-40); MCH 29.7 pg (25.7-33.7); MCHC 33.2 g/dl (32.0-36.0); MEAN CELL VOLUME 89.3 fl (80-96); MEAN PLT VOLUME 10.5 fl (7.5-11.1); MONO % 7.5 % (3.8-10.2); NEUT % 50.4 % (42.8-82.8); PLATELET COUNT 173 10^3/uL (134-434); RBC 4.24 M/mm3 (3.60-5.2); RDW 14.1 % (11.6-15.6); WHITE BLOOD COUNT 5.1 K/mm3 (4.0-10.0)
[2023-05-15 18:50] LABS: INR 1.53 (0.83-1.09); PROTHROMBIN TIME (PATIENT) 17.7 SEC (9.7-13.0)
[2023-05-15 18:52] LABS: ACTIVATED PTT 52.2 SECONDS (25.2-36.5)
[2023-05-15 19:00] LABS: ALBUMIN 3.8 g/dl (3.4-5.0); BLOOD UREA NITROGEN 20.8 mg/dL (7-18); MAGNESIUM 2.6 mg/dL (1.8-2.4)
[2023-05-15 19:04] LABS: CREATININE 1.2 mg/dL (0.55-1.3)
[2023-05-15 19:06] LABS: BILIRUBIN,TOTAL 0.5 mg/dL (0.2-1); TOT PROT 7.9 g/dl (6.4-8.2)
[2023-05-15 21:58] LABS: EPI CELLS 31 /uL (0-25.1); HYALINE CASTS 0 /uL (0-3.1); PH,URINE 6.5 (5.0-8.0); URINE APPEARANCE CLEAR; URINE BACTERIA 795 /uL (0-1359); URINE BILIRUBIN NEGATIVE (NEGATIVE); URINE COLOR YELLOW; URINE GLUCOSE (UA) NEGATIVE (NEGATIVE); URINE KETONE NEGATIVE (NEGATIVE); URINE LEUK ESTERASE NEGATIVE (NEGATIVE); URINE NITRITE NEGATIVE (NEGATIVE); URINE PROTEIN NEGATIVE (NEGATIVE); URINE RBC 31 /uL (0-23.9); URINE UROBILINOGEN 0.2 mg/dL (0.2-1.0); URINE WBC 12 /uL (0-25.8)
[2023-05-15] MEDS ORDERED: LIDOCAINE PATCH REMOVAL MC ONE (22:00)
[2023-05-16 06:31] VITALS: BMI 27.3
[2023-05-16 08:20] LABS: BASO % 0.2 % (0-2.0); HEMATOCRIT 37.5 % (32.4-45.2); HEMOGLOBIN 12.6 GM/dL (10.7-15.3); MCH 30.4 pg (25.7-33.7); MCHC 33.6 g/dl (32.0-36.0); MEAN CELL VOLUME 90.4 fl (80-96); MEAN PLT VOLUME 9.6 fl (7.5-11.1); MONO % 9.6 % (3.8-10.2); NEUT % 41.2 % (42.8-82.8); PLATELET COUNT 153 10^3/uL (134-434); RBC 4.15 M/mm3 (3.60-5.2); RDW 14.4 % (11.6-15.6); WHITE BLOOD COUNT 4.1 K/mm3 (4.0-10.0)
[2023-05-16 08:30] LABS: BLOOD UREA NITROGEN 20.6 mg/dL (7-18); CALCIUM 9.2 mg/dL (8.5-10.1)
[2023-05-16 08:32] LABS: ALBUMIN 3.2 g/dl (3.4-5.0); MAGNESIUM 2.2 mg/dL (1.8-2.4)
[2023-05-16 08:35] LABS: CREATININE 1.1 mg/dL (0.55-1.3)
[2023-05-16 08:36] LABS: BILIRUBIN,TOTAL 0.6 mg/dL (0.2-1); TOT PROT 7.1 g/dl (6.4-8.2)
[2023-05-16] MEDS ORDERED: metoPROLOL SUCCINATE 25 MG TAB.SR.24H (FP) PO SCH (13:15)
[2023-05-16] MEDS: metoPROLOL SUCCINATE 25 MG TAB.SR.24H (FP) PO SCH (13:39)
[2023-05-16] MEDS ORDERED: ACETAMINOPHEN 325 MG TABLET (FP) PO ONE (13:47)
[2023-05-16] MEDS: APIXABAN 5 MG TABLET PO SCH ×2 (13:53→21:30)
[2023-05-16] MEDS: DOFETILIDE 0.25 MG CAPSULE PO SCH ×2 (14:32→21:30)
[2023-05-16] MEDS ORDERED: METOPROLOL TARTRATE 5 MG/5 ML VIAL IVPUSH PRN (19:21)
[2023-05-17] MEDS: metoPROLOL SUCCINATE 25 MG TAB.SR.24H (FP) PO SCH (10:51)
[2023-05-17] MEDS: DOFETILIDE 0.25 MG CAPSULE PO SCH ×2 (10:51→21:34)
[2023-05-17] MEDS: APIXABAN 5 MG TABLET PO SCH ×2 (10:51→21:34)
[2023-05-17 18:18] VITALS: RESP 18
[2023-05-18 09:08] VITALS: BP 136/56; PULSE 65; TEMP 97.9
[2023-05-18] MEDS: APIXABAN 5 MG TABLET PO SCH (09:42)
[2023-05-18] MEDS: metoPROLOL SUCCINATE 25 MG TAB.SR.24H (FP) PO SCH (09:42)
[2023-05-18] MEDS: DOFETILIDE 0.25 MG CAPSULE PO SCH (09:58)
== END 2023-05-18 11:59 | disposition home health service (06) ==
LOC: JER 15:53 → JERBED 18:29 → J4W 05-16 05:51
PROVIDERS: ADMIT Internal Medicine; ATTEND Family Medicine
PROC: 3E033GC Introduction of Other Therapeutic Substance into Peripheral Vein, Percutaneous Approach (ICD-10-PCS; principal; 2023-05-15)
DX: R55 Syncope and collapse (principal); I11.0 Hypertensive heart disease with heart failure; I50.9 Heart failure, unspecified; E78.5 Hyperlipidemia, unspecified; K21.9 Gastro-esophageal reflux disease without esophagitis; H54.40 Blindness, one eye, unspecified eye; R00.1 Bradycardia, unspecified; F41.8 Other specified anxiety disorders; W18.39XA Other fall on same level, initial encounter; Y93.89 Activity, other specified; Y92.008 Other place in unspecified non-institutional (private) residence as the place of occurrence of the external cause; Z79.01 Long term (current) use of anticoagulants; Z87.891 Personal history of nicotine dependence
CPT/HCPCS: 36415; 70450-TC; 71045-TC-FY; 72125-TC; 72131-TC; 72192-TC; 80053; 81003; 83735; 84484; 85025; 85610; 85730; 87086; 93005; 93010; 96374; 97116-GP; 97161-GP; 99285-25; G0378